=== PATIENT | male | born 1945 | race Caucasian/White ===

== ENCOUNTER 2016-12-29 06:01 | Emergency (ER) | payer MEDICARE, OTHER ==
[~2016-12-29] VITALS: Ht 175.3 cm; Wt 79.7 kg
[~2016-12-29 06:01] MED LIST: ASPI-621 PO; ATOR10TA PO; METH750T2 PO; METO25TA35 PO; NITR0.4T SL; OXYC1TAB7 PO; PRAS10TA4 PO; SULF1TAB24 PO; VALS80TA3 PO
[2016-12-29 06:03] VITALS: BP 163/88
[2016-12-29] MEDS ORDERED: PHENYLEPHRINE NASAL 1%, 15ML SPRAY ONE (06:22)
[2016-12-29] MEDS ORDERED: SILVER NITRATE STICK TP ONE (06:50)
== END 2016-12-29 07:41 | disposition home or self-care (01) ==
LOC: ED 07:37
DX: R04.0 Epistaxis (principal); I10 Essential (primary) hypertension; I25.2 Old myocardial infarction
CPT/HCPCS: 30901; 99284

== ENCOUNTER → 2017-11-24 | Outpatient (CLI) | payer MEDICARE, OTHER | END | disposition home or self-care (01) | LOC: CFH 08:35 | PROVIDERS: ATTEND Physician Assistant Surgical | DX: M48.07 Spinal stenosis, lumbosacral region (principal); M51.26 Other intervertebral disc displacement, lumbar region | CPT/HCPCS: 72120; 72148 ==

== ENCOUNTER → 2018-01-06 | Outpatient (CLI) | payer MEDICARE, OTHER ==
[~2018-01-06] MED LIST changes: +ASPI-496 PO; +ATOR10TA9 PO; +CHOL10003 PO; +KRIL1CAP PO; +MAGN400T7 PO; +MULT-717 PO; +TURM500C4 PO; +areds 2 PO
[2018-01-06 09:42] LABS: MICROSCOPIC NOT IND
[2018-01-06 09:47] LABS: BASOPHILS # (AUTO) 0.04 x10^3/uL (0-0.1); BASOPHILS % (AUTO) 1 % (0-1); EOSINOPHILS % (AUTO) 2 % (1-7); LYMPHOCYTES # (AUTO) 1.87 x10^3/uL (1-3.4); LYMPHOCYTES % (AUTO) 39 % (22-44); MD NO; MEAN CORPUSCULAR HGB CONC 34.4 g/dL (33.2-36.2); MEAN CORPUSCULAR VOLUME 92.9 fL (81-97); MONOCYTES # (AUTO) 0.53 x10^3/uL (0.2-0.8); MONOCYTES % (AUTO) 11 % (2-9); NEUTROPHILS % (AUTO) 48 % (42-75); PLATELET COUNT 166 x10^3/uL (130-400); RED BLOOD COUNT 4.51 x10^6/uL (4.38-5.82); RED CELL DISTRIBUTION WIDTH 13.6 % (9.4-14.8)
[2018-01-06 09:53] LABS: ALANINE AMINOTRANSFERASE 32 U/L (12-78); ALBUMIN 3.6 g/dL (3.4-5.0); ANION GAP 5 mmol/L (5-15); CALCIUM 8.2 mg/dL (8.5-10.1); CHLORIDE 108 mmol/L (98-107); CREATININE 0.96 mg/dL (0.7-1.3)
[2018-01-06 09:55] LABS: ALKALINE PHOSPHATASE 96 U/L (45-117); BILIRUBIN,TOTAL 0.8 mg/dL (0.2-1.0)
[2018-01-06 09:59] LABS: INTERNATIONAL NORMALIZED RATIO 1.03 (0.93-1.1); PROTHROMBIN TIME 10.7 Seconds (9.6-11.5)
[2018-01-06 10:06] LABS: CULTURE INDICATED? NO
== END | disposition home or self-care (01) ==
LOC: STAR 08:35
PROVIDERS: ATTEND Neurological Surgery
DX: Z01.818 Encounter for other preprocedural examination (principal); M51.36 Other intervertebral disc degeneration, lumbar region; I10 Essential (primary) hypertension
CPT/HCPCS: 36415; 71046; 80053; 81003; 85025; 85610; 85730; 93005

== ENCOUNTER 2018-01-14 07:26 | Observation (INO) | payer MEDICARE, OTHER ==
[~2018-01-14] VITALS: Ht 172.7 cm; Wt 83.9 kg
[~2018-01-14 07:26] MED LIST changes: +BACITRACIN 50,000 UNIT ONE; +BUPIVACAINE 0.25% ONE; +BUPIVACAINE/PF-EPI 0.5% 1:200K ONE; +THROMBIN 5,000 UNIT VIAL TP ONE
[2018-01-14 07:58] VITALS: BP 145/86
[2018-01-14] MEDS ORDERED: LACTATED RINGERS 1,000 ML IV SCH (08:10)
[2018-01-14] MEDS ORDERED: LIDOCAINE-MPF 2%, 2ML ONE (08:13)
[2018-01-14] MEDS ORDERED: LIDOCAINE-MPF 1%, 2ML INFIL ONE (08:30)
[2018-01-14] MEDS ORDERED: BUPIVACAINE 0.25% ONE (08:34)
[2018-01-14] MEDS ORDERED: OXYcodone 5 MG/5 ML ORAL.SOL UDC PO PRN (09:30)
[2018-01-14] MEDS ORDERED: MIDAZOLAM 1 MG/ML, 2ML IV PRN (09:30)
[2018-01-14] MEDS ORDERED: HYDROmorphone 2 MG/ML, 1ML IV PRN (09:30)
[2018-01-14] MEDS ORDERED: LABETALOL 5MG/ML, 20ML IV PRN (09:30)
[2018-01-14] MEDS ORDERED: FENTANYL PF 100 MCG/2ML IV PRN (09:30)
[2018-01-14] MEDS ORDERED: MEPERIDINE/PF 25MG/0.5ML IVPush PRN (09:30)
[2018-01-14] MEDS ORDERED: ONDANSETRON 2MG/ML, 2ML IVPush PRN ×2 (09:30→11:30)
[2018-01-14] MEDS ORDERED: MIDAZOLAM 1 MG/ML, 2ML ONE ×2 (09:38)
[2018-01-14] MEDS ORDERED: FENTANYL PF 100 MCG/2ML ONE ×2 (09:38→10:59)
[2018-01-14] MEDS ORDERED: CEFAZOLIN 1,000 MG ONE ×2 (09:41)
[2018-01-14] MEDS ORDERED: LIDOCAINE GEL 2%, 5ML ONE (09:41)
[2018-01-14] MEDS ORDERED: WATER-INJECTION,STERILE 10 ML IV ONE (09:55)
[2018-01-14] MEDS ORDERED: EPHEDRINE 50 MG/ML, 1ML ONE (09:55)
[2018-01-14] MEDS ORDERED: NEOSTIGMINE 1 MG/ML, 10ML ONE (10:15)
[2018-01-14] MEDS ORDERED: BUPIVACAINE/PF 0.25% EPIDPUSH ONE (11:01)
[2018-01-14] MEDS ORDERED: FENTANYL PF 100 MCG/2ML EPIDPUSH ONE (11:01)
[2018-01-14] MEDS ORDERED: LABETALOL 5MG/ML, 20ML IVPush PRN (11:30)
[2018-01-14] MEDS ORDERED: METHOCARBAMOL 750 MG TABLET PO PRN (11:30)
[2018-01-14] MEDS ORDERED: PROMETHAZINE 25 MG/ML, 1ML IM PRN (11:30)
[2018-01-14] MEDS ORDERED: PHARMACY MAY ADJ FOR RENAL FX MC PRN (11:30)
[2018-01-14] MEDS ORDERED: SENNA/DOCUSATE TABLET PO PRN (11:30)
[2018-01-14] MEDS ORDERED: BISACODYL 10 MG SUPP PR PRN (11:30)
[2018-01-14] MEDS ORDERED: morphine SULFATE 10 MG/ML, 1ML IVPush PRN (11:30)
[2018-01-14] MEDS ORDERED: HYDROcodone/APAP 5/325 TABLET PO PRN (11:30)
[2018-01-14] MEDS ORDERED: OXYcodone/APAP 5/325MG TABLET PO PRN (11:30)
[2018-01-14] MEDS ORDERED: CYCLOBENZAPRINE 10 MG TABLET PO PRN (11:30)
[2018-01-14] MEDS ORDERED: DIPHENHYDRAMINE 50 MG/ML, 1ML IVPush PRN (11:30)
[2018-01-14] MEDS ORDERED: ACETAMINOPHEN 650 MG/20.3 ML UDC ONE (12:02)
[2018-01-14] MEDS ORDERED: OXYcodone 5 MG/5 ML ORAL.SOL UDC ONE (12:03)
[2018-01-14] MEDS ORDERED: D5%-0.9% NACL+KCL 20MEQ 1,000 ML IV SCH (13:00)
[2018-01-14 15:17] VITALS: BP 110/75
[2018-01-14] MEDS ORDERED: DEXAMETHASONE 4 MG/ML, 1ML ONE (15:51)
[2018-01-14] MEDS ORDERED: PROPOFOL 10 MG/ML, 50ML ONE (15:51)
[2018-01-14] MEDS ORDERED: PROPOFOL 10 MG/ML, 20ML ONE (15:51)
[2018-01-14] MEDS ORDERED: ROCURONIUM 10 MG/ML,10ML ONE (15:51)
[2018-01-14] MEDS ORDERED: ONDANSETRON 2MG/ML, 2ML ONE (15:51)
[2018-01-14] MEDS: CEFAZOLIN PMX 1GM/50ML 50 ML IVPB SCH (18:16)
[2018-01-14 20:00] VITALS: BP 130/77
[2018-01-14] MEDS ORDERED: ATORVASTATIN 10 MG TABLET PO SCH (21:00)
[2018-01-14] MEDS: METOPROLOL TARTRATE 25 MG TABLET PO SCH (21:39)
[2018-01-14] MEDS: SODIUM CHLORIDE FLUSH 10ML SYR IVF SCH (21:39)
[2018-01-14 23:44] VITALS: BP 136/80
[2018-01-15] MEDS: HYDROcodone/APAP 10/325 MG TABLET PO PRN ×2 (00:14→06:50)
[2018-01-15] MEDS: CEFAZOLIN PMX 1GM/50ML 50 ML IVPB SCH (02:09)
[2018-01-15 04:00] VITALS: BP 109/62
[2018-01-15 07:55] VITALS: BP 130/76
[2018-01-15] MEDS: SODIUM CHLORIDE FLUSH 10ML SYR IVF SCH (08:36)
[2018-01-15] MEDS: METOPROLOL TARTRATE 25 MG TABLET PO SCH (08:37)
[2018-01-15] MEDS ORDERED: VALSARTAN 80 MG TABLET PO SCH (09:00)
[2018-01-15] MEDS ORDERED: METH750T87 PO (09:28)
[2018-01-15] MEDS ORDERED: HYDR-3240 PO (09:29)
== END 2018-01-15 09:54 | disposition home or self-care (01) ==
LOC: OUT 07:26 → ORIP 11:26 → 4NOR 12:40 → DCLOUNGE 01-15 09:45
PROVIDERS: ADMIT Neurological Surgery; ATTEND Neurological Surgery
DX: M48.062 Spinal stenosis, lumbar region with neurogenic claudication (principal); G89.29 Other chronic pain; I25.10 Atherosclerotic heart disease of native coronary artery without angina pectoris; I10 Essential (primary) hypertension; E78.2 Mixed hyperlipidemia; R42 Dizziness and giddiness
CPT/HCPCS: 63047; 96365; 96375; 97161; 97165; G0378; G8978; G8979; G8980; J0690; J1100; J2250; J2405; J2704; J2710; J3010; J3480; J3490; J7120

== ENCOUNTER 2018-01-20 14:14 | Inpatient (IN) | payer MEDICARE, OTHER ==
[~2018-01-20] VITALS: Ht 172.7 cm; Wt 83.3 kg
[~2018-01-20 14:14] MED LIST changes: -BACITRACIN 50,000 UNIT ONE; -BUPIVACAINE 0.25% ONE; -BUPIVACAINE/PF-EPI 0.5% 1:200K ONE; +HYDR-3240 PO; +METH750T87 PO; -THROMBIN 5,000 UNIT VIAL TP ONE
[2018-01-20] MEDS ORDERED: SODIUM CHLORIDE FLUSH 10ML SYR IVF ONE ×2 (14:30→15:00)
[2018-01-20 14:55] LABS: BASOPHILS # (AUTO) 0.07 x10^3/uL (0-0.1); BASOPHILS % (AUTO) 1 % (0-1); EOSINOPHILS % (AUTO) 0 % (1-7); LYMPHOCYTES # (AUTO) 0.34 x10^3/uL (1-3.4); LYMPHOCYTES % (AUTO) 2 % (22-44); MD NO; MEAN CORPUSCULAR HEMOGLOBIN 31.8 pg (27.5-34.5); MEAN CORPUSCULAR HGB CONC 34.5 g/dL (33.2-36.2); MEAN CORPUSCULAR VOLUME 92.1 fL (81-97); MONOCYTES # (AUTO) 0.63 x10^3/uL (0.2-0.8); MONOCYTES % (AUTO) 4 % (2-9); NEUTROPHILS # (AUTO) 13.16 x10^3/uL (1.8-6.8); NEUTROPHILS % (AUTO) 93 % (42-75); PLATELET COUNT 192 x10^3/uL (130-400); RED BLOOD COUNT 4.29 x10^6/uL (4.38-5.82); RED CELL DISTRIBUTION WIDTH 13.5 % (9.4-14.8)
[2018-01-20 14:58] LABS: ALANINE AMINOTRANSFERASE 25 U/L (12-78); ALBUMIN 3.2 g/dL (3.4-5.0); ANION GAP 8 mmol/L (5-15); CALCIUM 8.5 mg/dL (8.5-10.1); CHLORIDE 98 mmol/L (98-107); CREATININE 1.04 mg/dL (0.7-1.3)
[2018-01-20 15:00] LABS: ALKALINE PHOSPHATASE 90 U/L (45-117); BILIRUBIN,TOTAL 1.6 mg/dL (0.2-1.0); TOTAL PROTEIN 7.5 g/dL (6.4-8.2)
[2018-01-20] MEDS ORDERED: MORPHINE SULFATE 4 MG/ML, 1ML ONE ×2 (15:15→17:19)
[2018-01-20] MEDS: MORPHINE SULFATE 4 MG/ML, 1ML IVPush PRN ×2 (15:34→17:52)
[2018-01-20] MEDS ORDERED: VANCOMYCIN 1,500 MG in SODIUM CHLORIDE 0.9% 250 ML IV ONE (17:30)
[2018-01-20] MEDS ORDERED: VANCOMYCIN PER PHARMACY MC ONE (17:30)
[2018-01-20] MEDS ORDERED: VANCOMYCIN PER PHARMACY MC PRN (18:30)
[2018-01-20 18:58] VITALS: BP 133/78
[2018-01-20] MEDS ORDERED: ONDANSETRON 2MG/ML, 2ML IVPush PRN (19:00)
[2018-01-20] MEDS ORDERED: PHARMACOKINETIC MONITORING MC PRN (19:00)
[2018-01-20] MEDS ORDERED: ACETAMINOPHEN 325 MG TABLET PO PRN (19:00)
[2018-01-20] MEDS ORDERED: POLYETHYLENE GLYCOL 17 GM PACKET PO PRN (19:00)
[2018-01-20] MEDS ORDERED: BISACODYL 10 MG SUPP PR PRN (19:00)
[2018-01-20] MEDS ORDERED: PHARMACOKINETIC CONSULTATION MC ONE (19:00)
[2018-01-20] MEDS: ATORVASTATIN 10 MG TABLET PO SCH (20:07)
[2018-01-20] MEDS: PIPERACILLIN/TAZO/PMX 3.375GM 50 ML IV SCH (20:07)
[2018-01-20] MEDS: METHOCARBAMOL 750 MG TABLET PO PRN (20:07)
[2018-01-20] MEDS: METOPROLOL TARTRATE 25 MG TABLET PO SCH (20:08)
[2018-01-20] MEDS: HYDROcodone/APAP 5/325 TABLET PO PRN (20:08)
[2018-01-20] MEDS: SODIUM CHLORIDE 0.9% 1,000 ML IV SCH (20:08)
[2018-01-20 20:15] LABS: MICROSCOPIC NOT IND
[2018-01-20 20:33] LABS: CULTURE INDICATED? NO
[2018-01-21 00:06] VITALS: BP 99/59
[2018-01-21] MEDS: HYDROcodone/APAP 5/325 TABLET PO PRN ×4 (00:06→20:33)
[2018-01-21] MEDS: METHOCARBAMOL 750 MG TABLET PO PRN ×2 (00:06→04:03)
[2018-01-21] MEDS: PIPERACILLIN/TAZO/PMX 3.375GM 50 ML IV SCH ×4 (02:16→20:33)
[2018-01-21] MEDS ORDERED: MORPHINE SULFATE 4 MG/ML, 1ML IVPush ONE (04:30)
[2018-01-21 06:17] LABS: BASOPHILS # (AUTO) 0.01 x10^3/uL (0-0.1); BASOPHILS % (AUTO) 0 % (0-1); EOSINOPHILS # (AUTO) 0.07 x10^3/uL (0-0.4); EOSINOPHILS % (AUTO) 1 % (1-7); LYMPHOCYTES # (AUTO) 0.61 x10^3/uL (1-3.4); LYMPHOCYTES % (AUTO) 5 % (22-44); MD NO; MEAN CORPUSCULAR HEMOGLOBIN 32.4 pg (27.5-34.5); MEAN CORPUSCULAR HGB CONC 34.4 g/dL (33.2-36.2); MEAN CORPUSCULAR VOLUME 94.1 fL (81-97); MEAN PLATELET VOLUME 8.4 fL (7.4-10.4); MONOCYTES # (AUTO) 0.73 x10^3/uL (0.2-0.8); MONOCYTES % (AUTO) 5 % (2-9); NEUTROPHILS # (AUTO) 12.02 x10^3/uL (1.8-6.8); NEUTROPHILS % (AUTO) 90 % (42-75); PLATELET COUNT 203 x10^3/uL (130-400); RED BLOOD COUNT 4.25 x10^6/uL (4.38-5.82); RED CELL DISTRIBUTION WIDTH 13.7 % (9.4-14.8)
[2018-01-21 06:24] LABS: CHLORIDE 101 mmol/L (98-107)
[2018-01-21] MEDS: SODIUM CHLORIDE 0.9% 1,000 ML IV SCH ×3 (06:25→22:36)
[2018-01-21 06:31] LABS: ALANINE AMINOTRANSFERASE 22 U/L (12-78); ALBUMIN 3.1 g/dL (3.4-5.0); ALKALINE PHOSPHATASE 88 U/L (45-117); ANION GAP 9 mmol/L (5-15); BILIRUBIN,TOTAL 1.6 mg/dL (0.2-1.0); CALCIUM 8.9 mg/dL (8.5-10.1); CREATININE 1.01 mg/dL (0.7-1.3); TOTAL PROTEIN 7.5 g/dL (6.4-8.2)
[2018-01-21 06:50] VITALS: BP 119/72
[2018-01-21] MEDS: METOPROLOL TARTRATE 25 MG TABLET PO SCH ×2 (08:30→20:33)
[2018-01-21] MEDS: CHOLECALCIFEROL 1,000 UNIT TABLET PO SCH (09:00)
[2018-01-21] MEDS: VALSARTAN 80 MG TABLET PO SCH (09:00)
[2018-01-21] MEDS ORDERED: TURMERIC ROOT EXTRACT PO SCH (09:00)
[2018-01-21] MEDS ORDERED: [UNRECOGNIZED DRUG - OTHER] PO SCH (09:00)
[2018-01-21] MEDS: SENNA/DOCUSATE TABLET PO SCH (09:00)
[2018-01-21] MEDS: FAMOTIDINE 20 MG TABLET PO SCH ×2 (09:00→10:27)
[2018-01-21] MEDS: MULTIVITAMINS/MINERALS TABLET PO SCH (09:00)
[2018-01-21] MEDS: MAGNESIUM OXIDE 400 MG TABLET PO SCH (09:00)
[2018-01-21] MEDS ORDERED: TURMERIC PO SCH (09:00)
[2018-01-21] MEDS: METHOCARBAMOL 750 MG in DEXTROSE 5% 100 ML IV SCH ×3 (10:26→21:16)
[2018-01-21] MEDS: TAMSULOSIN 0.4 MG CAP.ER.24H PO SCH (10:27)
[2018-01-21] MEDS: DEXAMETHASONE 4 MG/ML, 1ML IV SCH ×3 (10:28→20:34)
[2018-01-21] MEDS: KETOROLAC 30 MG/1 ML IVPush SCH ×3 (10:28→20:33)
[2018-01-21] MEDS: VANCOMYCIN 1,500 MG in SODIUM CHLORIDE 0.9% 250 ML IV SCH (11:36)
[2018-01-21 14:45] VITALS: BP 109/63
[2018-01-21] MEDS: ATORVASTATIN 10 MG TABLET PO SCH (20:33)
[2018-01-21 20:55] VITALS: BP 122/63
[2018-01-22 01:18] VITALS: BP 161/88
[2018-01-22] MEDS: PIPERACILLIN/TAZO/PMX 3.375GM 50 ML IV SCH ×2 (02:38→08:35)
[2018-01-22] MEDS: KETOROLAC 30 MG/1 ML IVPush SCH (03:11)
[2018-01-22] MEDS: DEXAMETHASONE 4 MG/ML, 1ML IV SCH ×2 (03:11→09:00)
[2018-01-22] MEDS: METHOCARBAMOL 750 MG in DEXTROSE 5% 100 ML IV SCH ×2 (03:11→11:07)
[2018-01-22] MEDS: VANCOMYCIN 1,500 MG in SODIUM CHLORIDE 0.9% 250 ML IV SCH (05:05)
[2018-01-22 05:28] LABS: MEAN CORPUSCULAR HEMOGLOBIN 32.3 pg (27.5-34.5); MEAN CORPUSCULAR HGB CONC 34.7 g/dL (33.2-36.2); MEAN CORPUSCULAR VOLUME 93.3 fL (81-97); MEAN PLATELET VOLUME 7.9 fL (7.4-10.4); PLATELET COUNT 208 x10^3/uL (130-400); RED BLOOD COUNT 3.56 x10^6/uL (4.38-5.82); RED CELL DISTRIBUTION WIDTH 13.9 % (9.4-14.8)
[2018-01-22 05:40] LABS: ALANINE AMINOTRANSFERASE 18 U/L (12-78); ALBUMIN 2.3 g/dL (3.4-5.0); ANION GAP 8 mmol/L (5-15); CHLORIDE 107 mmol/L (98-107); CREATININE 0.92 mg/dL (0.7-1.3)
[2018-01-22 05:43] LABS: ALKALINE PHOSPHATASE 72 U/L (45-117); BILIRUBIN,TOTAL 0.5 mg/dL (0.2-1.0); TOTAL PROTEIN 6.2 g/dL (6.4-8.2)
[2018-01-22 05:51] LABS: BASOPHILS % (AUTO) 0 % (0-1); EOSINOPHILS % (AUTO) 0 % (1-7); LYMPHOCYTES % (AUTO) 5 % (22-44); MD SCAN; MONOCYTES # (AUTO) 0.36 x10^3/uL (0.2-0.8); MONOCYTES % (AUTO) 4 % (2-9); NEUTROPHILS # (AUTO) 9.63 x10^3/uL (1.8-6.8); NEUTROPHILS % (AUTO) 92 % (42-75)
[2018-01-22] MEDS: HYDROcodone/APAP 5/325 TABLET PO PRN ×2 (06:32→12:23)
[2018-01-22 07:05] VITALS: BP 144/90
[2018-01-22] MEDS: SODIUM CHLORIDE 0.9% 1,000 ML IV SCH (08:35)
[2018-01-22] MEDS ORDERED: KETOROLAC 30 MG/1 ML IV PRN (09:00)
[2018-01-22] MEDS: SENNA/DOCUSATE TABLET PO SCH (09:51)
[2018-01-22] MEDS: METOPROLOL TARTRATE 25 MG TABLET PO SCH (09:52)
[2018-01-22] MEDS: VALSARTAN 80 MG TABLET PO SCH (09:52)
[2018-01-22] MEDS: FAMOTIDINE 20 MG TABLET PO SCH (09:52)
[2018-01-22] MEDS: CHOLECALCIFEROL 1,000 UNIT TABLET PO SCH (09:52)
[2018-01-22] MEDS: TAMSULOSIN 0.4 MG CAP.ER.24H PO SCH (09:52)
[2018-01-22] MEDS: MULTIVITAMINS/MINERALS TABLET PO SCH (09:52)
[2018-01-22] MEDS: MAGNESIUM OXIDE 400 MG TABLET PO SCH (09:52)
[2018-01-22] MEDS ORDERED: medrol dose pack (11:14)
[2018-01-22] MEDS ORDERED: FAMO20TA7 PO (11:14)
[2018-01-22] MEDS ORDERED: POLY17PO5 PO (11:14)
[2018-01-23] MEDS ORDERED: MAGN100T6 PO (12:08)
== END 2018-01-22 12:41 | disposition home or self-care (01) | DRG 947 ==
LOC: ED 17:34 → EDIP 17:35 → ED 17:57 → 3NE 18:13 → DCLOUNGE 01-22 12:29
PROVIDERS: ADMIT Hospitalist; ATTEND Internal Medicine
DX: G89.18 Other acute postprocedural pain (principal); E43 Unspecified severe protein-calorie malnutrition; G03.9 Meningitis, unspecified; E87.1 Hypo-osmolality and hyponatremia; R17 Unspecified jaundice; M54.5 Low back pain; Z68.27 Body mass index [BMI] 27.0-27.9, adult; I10 Essential (primary) hypertension; I25.10 Atherosclerotic heart disease of native coronary artery without angina pectoris; I25.2 Old myocardial infarction; Z66 Do not resuscitate; Z95.5 Presence of coronary angioplasty implant and graft
CPT/HCPCS: 36415; 71045; 72120; 72158; 80053; 81003; 83605; 83735; 84100; 85025; 87040; 96374; 96376; 99285; J1100; J1885; J2543; J3370; J2800; J7030; J7050

== ENCOUNTER 2018-01-23 11:45 | Inpatient (IN) | payer MEDICARE, OTHER ==
[~2018-01-23] VITALS: Ht 172.7 cm; Wt 82.1 kg
[~2018-01-23 11:45] MED LIST changes: +FAMO20TA7 PO; +POLY17PO5 PO; +medrol dose pack
[2018-01-23] MEDS ORDERED: MAGN100T6 PO (12:08)
[2018-01-23] MEDS ORDERED: ONDANSETRON 2MG/ML, 2ML IVPush ONE (12:30)
[2018-01-23] MEDS ORDERED: SODIUM CHLORIDE FLUSH 10ML SYR IVF ONE (12:30)
[2018-01-23] MEDS ORDERED: MORPHINE SULFATE 4 MG/ML, 1ML IVPush ONE (12:30)
[2018-01-23] MEDS ORDERED: SODIUM CHLORIDE 0.9% 1,000ML IVBOLUS ONE (12:30)
[2018-01-23] MEDS ORDERED: ONDANSETRON 2MG/ML, 2ML ONE (12:47)
[2018-01-23] MEDS ORDERED: MORPHINE SULFATE 4 MG/ML, 1ML ONE (12:47)
[2018-01-23 13:07] LABS: ALANINE AMINOTRANSFERASE 24 U/L (12-78); ALBUMIN 2.8 g/dL (3.4-5.0); ANION GAP 9 mmol/L (5-15); CALCIUM 8.7 mg/dL (8.5-10.1); CHLORIDE 107 mmol/L (98-107); CREATININE 1.05 mg/dL (0.7-1.3)
[2018-01-23 13:24] LABS: ALKALINE PHOSPHATASE 81 U/L (45-117); BILIRUBIN,TOTAL 0.5 mg/dL (0.2-1.0); TOTAL PROTEIN 7.2 g/dL (6.4-8.2)
[2018-01-23] MEDS ORDERED: GADOBUTROL 7.5 MMOL/7.5 ML PFS ONE (14:00)
[2018-01-23 14:11] LABS: BASOPHILS # (AUTO) 0.01 x10^3/uL (0-0.1); BASOPHILS % (AUTO) 0 % (0-1); EOSINOPHILS % (AUTO) 0 % (1-7); LYMPHOCYTES # (AUTO) 0.76 x10^3/uL (1-3.4); LYMPHOCYTES % (AUTO) 7 % (22-44); MD NO; MEAN CORPUSCULAR HEMOGLOBIN 32.3 pg (27.5-34.5); MEAN CORPUSCULAR HGB CONC 35.2 g/dL (33.2-36.2); MEAN CORPUSCULAR VOLUME 91.7 fL (81-97); MEAN PLATELET VOLUME 7.5 fL (7.4-10.4); MONOCYTES # (AUTO) 0.66 x10^3/uL (0.2-0.8); MONOCYTES % (AUTO) 6 % (2-9); NEUTROPHILS # (AUTO) 9.54 x10^3/uL (1.8-6.8); NEUTROPHILS % (AUTO) 87 % (42-75); PLATELET COUNT 308 x10^3/uL (130-400); RED CELL DISTRIBUTION WIDTH 13.7 % (9.4-14.8)
[2018-01-23] MEDS ORDERED: POLYETHYLENE GLYCOL 17 GM PACKET PO PRN (16:30)
[2018-01-23 16:43] VITALS: BP 150/85
[2018-01-23 17:01] LABS: FREE T4 (FREE THYROXINE) 1.3 ng/dL (0.76-1.46); THYROID STIMULATING HORMONE 0.685 mIU/L (0.358-3.740)
[2018-01-23 17:05] LABS: HCT (SEDRATE) 36.7 % (39.2-51.8)
[2018-01-23] MEDS: POTASSIUM CHLORIDE 20 MEQ TAB.ER.PRT PO SCH ×2 (17:37→20:52)
[2018-01-23] MEDS: ENOXAPARIN 40 MG/0.4 ML SQ SCH (17:37)
[2018-01-23] MEDS: METHOCARBAMOL 750 MG in DEXTROSE 5% 100 ML IV SCH ×2 (17:37→23:39)
[2018-01-23] MEDS ORDERED: ONDANSETRON 2MG/ML, 2ML IVPush PRN (19:00)
[2018-01-23 19:59] VITALS: BP 148/86
[2018-01-23] MEDS: FAMOTIDINE 20 MG TABLET PO SCH (20:52)
[2018-01-23] MEDS: METOPROLOL TARTRATE 25 MG TABLET PO SCH (20:52)
[2018-01-23] MEDS: ATORVASTATIN 10 MG TABLET PO SCH (20:52)
[2018-01-23] MEDS ORDERED: TEMAZEPAM 15 MG CAPSULE PO PRN (21:00)
[2018-01-23] MEDS: SODIUM CHLORIDE 0.9% 1,000 ML IV SCH (23:40)
[2018-01-24 01:21] VITALS: BP 152/78
[2018-01-24] MEDS: ACETAMINOPHEN 325 MG TABLET PO PRN ×2 (03:48→10:10)
[2018-01-24] MEDS: METHOCARBAMOL 750 MG in DEXTROSE 5% 100 ML IV SCH ×4 (05:05→22:45)
[2018-01-24 05:32] LABS: BASOPHILS % (AUTO) 0 % (0-1); EOSINOPHILS # (AUTO) 0.08 x10^3/uL (0-0.4); EOSINOPHILS % (AUTO) 1 % (1-7); LYMPHOCYTES # (AUTO) 1.37 x10^3/uL (1-3.4); LYMPHOCYTES % (AUTO) 16 % (22-44); MD NO; MEAN CORPUSCULAR HEMOGLOBIN 31.6 pg (27.5-34.5); MEAN CORPUSCULAR HGB CONC 34.5 g/dL (33.2-36.2); MEAN CORPUSCULAR VOLUME 91.8 fL (81-97); MEAN PLATELET VOLUME 7.4 fL (7.4-10.4); MONOCYTES # (AUTO) 0.86 x10^3/uL (0.2-0.8); MONOCYTES % (AUTO) 10 % (2-9); NEUTROPHILS # (AUTO) 6.38 x10^3/uL (1.8-6.8); NEUTROPHILS % (AUTO) 73 % (42-75); PLATELET COUNT 287 x10^3/uL (130-400); RED BLOOD COUNT 3.82 x10^6/uL (4.38-5.82); RED CELL DISTRIBUTION WIDTH 14.1 % (9.4-14.8)
[2018-01-24 05:34] LABS: ALBUMIN 2.6 g/dL (3.4-5.0); ANION GAP 9 mmol/L (5-15); CHLORIDE 108 mmol/L (98-107)
[2018-01-24 05:40] LABS: ALANINE AMINOTRANSFERASE 27 U/L (12-78); ALKALINE PHOSPHATASE 80 U/L (45-117); BILIRUBIN,TOTAL 0.8 mg/dL (0.2-1.0); CALCIUM 7.9 mg/dL (8.5-10.1); TOTAL PROTEIN 6.7 g/dL (6.4-8.2)
[2018-01-24 07:42] VITALS: BP 135/82
[2018-01-24] MEDS: FAMOTIDINE 20 MG TABLET PO SCH ×2 (08:25→21:16)
[2018-01-24] MEDS: CHOLECALCIFEROL 1,000 UNIT TABLET PO SCH (08:25)
[2018-01-24] MEDS: METOPROLOL TARTRATE 25 MG TABLET PO SCH ×2 (08:25→21:16)
[2018-01-24] MEDS: SODIUM CHLORIDE 0.9% 1,000 ML IV SCH ×3 (08:26→22:45)
[2018-01-24] MEDS ORDERED: ONDANSETRON 2MG/ML, 2ML IV PRN (11:30)
[2018-01-24] MEDS ORDERED: ACETAMINOPHEN 325 MG TABLET PO PRN (11:30)
[2018-01-24] MEDS ORDERED: MEPERIDINE/PF 25MG/0.5ML IVPush PRN (11:30)
[2018-01-24] MEDS ORDERED: hydrALAzine 20 MG/ML, 1ML IV PRN (11:30)
[2018-01-24] MEDS ORDERED: DIAZEPAM 5 MG/ML, 2ML IVPush PRN (11:30)
[2018-01-24] MEDS ORDERED: PROMETHAZINE 12.5 MG SUPP PR PRN (11:30)
[2018-01-24] MEDS ORDERED: FENTANYL PF 250 MCG/5ML ONE (12:23)
[2018-01-24] MEDS ORDERED: BUPIVACAINE/PF 0.5% ONE (12:43)
[2018-01-24] MEDS ORDERED: THROMBIN 5,000 UNIT VIAL TP ONE (12:44)
[2018-01-24] MEDS ORDERED: VANCOMYCIN 1,000 MG ONE (12:44)
[2018-01-24] MEDS ORDERED: BACITRACIN 50,000 UNIT ONE (12:44)
[2018-01-24] MEDS ORDERED: EPINEPHRINE 1 MG/ML, 1ML ONE (12:44)
[2018-01-24] MEDS ORDERED: CEFAZOLIN 1,000 MG ONE (13:25)
[2018-01-24] MEDS ORDERED: PROPOFOL 10 MG/ML, 20ML ONE (14:46)
[2018-01-24] MEDS ORDERED: ROCURONIUM 10MG/ML,5ML ONE (14:46)
[2018-01-24] MEDS ORDERED: SUCCINYLCHOLINE 20 MG/ML, 10ML ONE (14:46)
[2018-01-24] MEDS ORDERED: ONDANSETRON 2MG/ML, 2ML ONE (14:46)
[2018-01-24] MEDS ORDERED: DEXAMETHASONE 4 MG/ML, 1ML ONE (14:46)
[2018-01-24] MEDS: FENTANYL PF 100 MCG/2ML IV PRN ×2 (15:15→15:25)
[2018-01-24] MEDS ORDERED: FENTANYL PF 100 MCG/2ML ONE (15:16)
[2018-01-24] MEDS ORDERED: ACETAMINOPHEN 650 MG/20.3 ML UDC ONE (15:19)
[2018-01-24] MEDS ORDERED: OXYcodone 5 MG/5 ML ORAL.SOL UDC ONE (15:20)
[2018-01-24] MEDS ORDERED: HYDROmorphone 2 MG/ML, 1ML ONE (15:20)
[2018-01-24] MEDS ORDERED: PHARMACY MAY ADJ FOR RENAL FX MC PRN (15:30)
[2018-01-24] MEDS: OXYcodone 5 MG/5 ML ORAL.SOL UDC PO PRN ×2 (15:30→18:22)
[2018-01-24] MEDS: HYDROmorphone 1 MG/ML, 1ML IV PRN ×4 (15:50→16:35)
[2018-01-24] MEDS ORDERED: CEFAZOLIN PMX 1GM/50ML 50 ML IVPB SCH (16:00)
[2018-01-24] MEDS: LABETALOL 5MG/ML, 20ML IV PRN ×2 (16:10→16:20)
[2018-01-24] MEDS ORDERED: LABETALOL 5MG/ML, 20ML ONE (16:27)
[2018-01-24] MEDS: ENOXAPARIN 40 MG/0.4 ML SQ SCH (17:00)
[2018-01-24 20:04] VITALS: BP 144/90
[2018-01-24] MEDS: CEFAZOLIN PMX 1GM/50ML 50 ML IVPB SCH (21:13)
[2018-01-24] MEDS: ATORVASTATIN 10 MG TABLET PO SCH (21:15)
[2018-01-25 00:56] VITALS: BP 138/82
[2018-01-25] MEDS: METHOCARBAMOL 750 MG in DEXTROSE 5% 100 ML IV SCH ×4 (04:48→22:54)
[2018-01-25 05:31] LABS: BASOPHILS # (AUTO) 0.02 x10^3/uL (0-0.1); BASOPHILS % (AUTO) 0 % (0-1); EOSINOPHILS # (AUTO) 0.03 x10^3/uL (0-0.4); EOSINOPHILS % (AUTO) 0 % (1-7); LYMPHOCYTES # (AUTO) 1.18 x10^3/uL (1-3.4); LYMPHOCYTES % (AUTO) 15 % (22-44); MD NO; MEAN CORPUSCULAR HEMOGLOBIN 31.8 pg (27.5-34.5); MEAN CORPUSCULAR HGB CONC 34.5 g/dL (33.2-36.2); MEAN CORPUSCULAR VOLUME 92.2 fL (81-97); MEAN PLATELET VOLUME 7.3 fL (7.4-10.4); MONOCYTES # (AUTO) 0.73 x10^3/uL (0.2-0.8); MONOCYTES % (AUTO) 9 % (2-9); NEUTROPHILS # (AUTO) 6.01 x10^3/uL (1.8-6.8); NEUTROPHILS % (AUTO) 76 % (42-75); PLATELET COUNT 252 x10^3/uL (130-400); RED BLOOD COUNT 3.39 x10^6/uL (4.38-5.82); RED CELL DISTRIBUTION WIDTH 13.9 % (9.4-14.8)
[2018-01-25] MEDS: CEFAZOLIN PMX 1GM/50ML 50 ML IVPB SCH (05:38)
[2018-01-25 05:42] LABS: ALBUMIN 2.2 g/dL (3.4-5.0); ANION GAP 6 mmol/L (5-15); CALCIUM 7.9 mg/dL (8.5-10.1); CHLORIDE 104 mmol/L (98-107)
[2018-01-25 05:47] LABS: ALANINE AMINOTRANSFERASE 20 U/L (12-78); ALKALINE PHOSPHATASE 69 U/L (45-117); BILIRUBIN,TOTAL 0.6 mg/dL (0.2-1.0); CREATININE 0.63 mg/dL (0.7-1.3); TOTAL PROTEIN 5.8 g/dL (6.4-8.2)
[2018-01-25] MEDS: SODIUM CHLORIDE 0.9% 1,000 ML IV SCH ×2 (08:13→16:58)
[2018-01-25] MEDS: FAMOTIDINE 20 MG TABLET PO SCH ×2 (08:16→22:54)
[2018-01-25] MEDS: CHOLECALCIFEROL 1,000 UNIT TABLET PO SCH (08:16)
[2018-01-25] MEDS: METOPROLOL TARTRATE 25 MG TABLET PO SCH ×2 (08:16→22:54)
[2018-01-25 08:17] VITALS: BP 148/85
[2018-01-25 12:20] VITALS: BP 147/75
[2018-01-25] MEDS: ENOXAPARIN 40 MG/0.4 ML SQ SCH (15:17)
[2018-01-25] MEDS: HYDROcodone/APAP 5/325 TABLET PO PRN (18:00)
[2018-01-25 18:55] VITALS: BP 155/76
[2018-01-25] MEDS: ATORVASTATIN 10 MG TABLET PO SCH (22:54)
[2018-01-26 01:53] VITALS: BP 160/92
[2018-01-26] MEDS: SODIUM CHLORIDE 0.9% 1,000 ML IV SCH ×3 (02:01→20:54)
[2018-01-26 05:49] LABS: BASOPHILS # (AUTO) 0.01 x10^3/uL (0-0.1); BASOPHILS % (AUTO) 0 % (0-1); EOSINOPHILS # (AUTO) 0.09 x10^3/uL (0-0.4); EOSINOPHILS % (AUTO) 1 % (1-7); LYMPHOCYTES # (AUTO) 0.88 x10^3/uL (1-3.4); LYMPHOCYTES % (AUTO) 12 % (22-44); MD NO; MEAN CORPUSCULAR HEMOGLOBIN 31.5 pg (27.5-34.5); MEAN CORPUSCULAR HGB CONC 34.1 g/dL (33.2-36.2); MEAN CORPUSCULAR VOLUME 92.4 fL (81-97); MEAN PLATELET VOLUME 7.3 fL (7.4-10.4); MONOCYTES # (AUTO) 0.37 x10^3/uL (0.2-0.8); MONOCYTES % (AUTO) 5 % (2-9); NEUTROPHILS # (AUTO) 6.36 x10^3/uL (1.8-6.8); NEUTROPHILS % (AUTO) 83 % (42-75); PLATELET COUNT 297 x10^3/uL (130-400); RED BLOOD COUNT 3.96 x10^6/uL (4.38-5.82); RED CELL DISTRIBUTION WIDTH 13.6 % (9.4-14.8)
[2018-01-26 05:53] LABS: ALBUMIN 2.3 g/dL (3.4-5.0); ANION GAP 8 mmol/L (5-15); CALCIUM 8.3 mg/dL (8.5-10.1); CHLORIDE 101 mmol/L (98-107)
[2018-01-26 05:56] LABS: ALANINE AMINOTRANSFERASE 21 U/L (12-78); ALKALINE PHOSPHATASE 91 U/L (45-117); BILIRUBIN,TOTAL 0.9 mg/dL (0.2-1.0); CREATININE 0.58 mg/dL (0.7-1.3); TOTAL PROTEIN 6.4 g/dL (6.4-8.2)
[2018-01-26] MEDS: METHOCARBAMOL 750 MG in DEXTROSE 5% 100 ML IV SCH ×3 (06:17→21:04)
[2018-01-26 07:31] VITALS: BP 158/87
[2018-01-26] MEDS: FAMOTIDINE 20 MG TABLET PO SCH ×2 (08:50→20:54)
[2018-01-26] MEDS: CHOLECALCIFEROL 1,000 UNIT TABLET PO SCH (08:50)
[2018-01-26] MEDS: METOPROLOL TARTRATE 25 MG TABLET PO SCH ×2 (08:50→20:54)
[2018-01-26] MEDS ORDERED: NAFCILLIN IV SCH (09:00)
[2018-01-26] MEDS ORDERED: DEXTROSE 5% IV SCH (09:00)
[2018-01-26] MEDS ORDERED: TAMSULOSIN 0.4 MG CAP.ER.24H ONE (12:50)
[2018-01-26] MEDS: TAMSULOSIN 0.4 MG CAP.ER.24H PO SCH (12:58)
[2018-01-26 12:59] VITALS: BP 153/82
[2018-01-26] MEDS ORDERED: CEFUROXIME 1.5 GM in SODIUM CHLORIDE 0.9% 100 ML IV SCH (14:00)
[2018-01-26] MEDS: ENOXAPARIN 40 MG/0.4 ML SQ SCH (15:09)
[2018-01-26] MEDS: CEFUROXIME 1.5 GM in SODIUM CHLORIDE 0.9% 50 ML IV SCH ×2 (15:09→23:17)
[2018-01-26 18:58] VITALS: BP 153/84
[2018-01-26] MEDS: HYDROcodone/APAP 5/325 TABLET PO PRN (20:54)
[2018-01-26] MEDS: ATORVASTATIN 10 MG TABLET PO SCH (20:54)
[2018-01-27 00:59] VITALS: BP 160/88
[2018-01-27] MEDS: HYDROcodone/APAP 5/325 TABLET PO PRN ×4 (01:46→20:08)
[2018-01-27] MEDS: SODIUM CHLORIDE 0.9% 1,000 ML IV SCH (05:57)
[2018-01-27 07:24] VITALS: BP 131/73
[2018-01-27] MEDS: FAMOTIDINE 20 MG TABLET PO SCH ×2 (07:33→20:07)
[2018-01-27] MEDS: CHOLECALCIFEROL 1,000 UNIT TABLET PO SCH (07:33)
[2018-01-27] MEDS: CEFUROXIME 1.5 GM in SODIUM CHLORIDE 0.9% 50 ML IV SCH ×3 (07:33→23:35)
[2018-01-27] MEDS: TAMSULOSIN 0.4 MG CAP.ER.24H PO SCH (07:33)
[2018-01-27] MEDS: METOPROLOL TARTRATE 25 MG TABLET PO SCH ×2 (07:33→20:08)
[2018-01-27 14:48] VITALS: BP 137/85
[2018-01-27] MEDS: ENOXAPARIN 40 MG/0.4 ML SQ SCH (15:00)
[2018-01-27] MEDS: METHOCARBAMOL 750 MG TABLET PO PRN (15:28)
[2018-01-27 20:02] VITALS: BP 151/77
[2018-01-27] MEDS: ATORVASTATIN 10 MG TABLET PO SCH (20:07)
[2018-01-28] MEDS: HYDROcodone/APAP 5/325 TABLET PO PRN ×4 (00:12→21:32)
[2018-01-28] MEDS: METHOCARBAMOL 750 MG TABLET PO PRN ×2 (00:12→19:42)
[2018-01-28 00:13] VITALS: BP 148/79
[2018-01-28 05:31] LABS: BASOPHILS # (AUTO) 0.01 x10^3/uL (0-0.1); BASOPHILS % (AUTO) 0 % (0-1); EOSINOPHILS # (AUTO) 0.13 x10^3/uL (0-0.4); EOSINOPHILS % (AUTO) 2 % (1-7); LYMPHOCYTES % (AUTO) 13 % (22-44); MD NO; MEAN CORPUSCULAR HGB CONC 34.9 g/dL (33.2-36.2); MEAN CORPUSCULAR VOLUME 91.7 fL (81-97); MEAN PLATELET VOLUME 7.1 fL (7.4-10.4); MONOCYTES # (AUTO) 0.64 x10^3/uL (0.2-0.8); MONOCYTES % (AUTO) 9 % (2-9); NEUTROPHILS # (AUTO) 5.54 x10^3/uL (1.8-6.8); NEUTROPHILS % (AUTO) 77 % (42-75); PLATELET COUNT 247 x10^3/uL (130-400); RED BLOOD COUNT 3.62 x10^6/uL (4.38-5.82); RED CELL DISTRIBUTION WIDTH 13.8 % (9.4-14.8)
[2018-01-28 05:38] LABS: ALANINE AMINOTRANSFERASE 82 U/L (12-78); ANION GAP 8 mmol/L (5-15); CALCIUM 8.1 mg/dL (8.5-10.1); CHLORIDE 105 mmol/L (98-107); CREATININE 0.66 mg/dL (0.7-1.3)
[2018-01-28 05:41] LABS: ALKALINE PHOSPHATASE 240 U/L (45-117); BILIRUBIN,TOTAL 1.1 mg/dL (0.2-1.0); TOTAL PROTEIN 6.1 g/dL (6.4-8.2)
[2018-01-28] MEDS: TAMSULOSIN 0.4 MG CAP.ER.24H PO SCH (07:36)
[2018-01-28] MEDS: CEFUROXIME 1.5 GM in SODIUM CHLORIDE 0.9% 50 ML IV SCH (07:36)
[2018-01-28] MEDS: CHOLECALCIFEROL 1,000 UNIT TABLET PO SCH (07:36)
[2018-01-28] MEDS: FAMOTIDINE 20 MG TABLET PO SCH ×2 (07:36→19:42)
[2018-01-28] MEDS: METOPROLOL TARTRATE 25 MG TABLET PO SCH ×2 (07:37→19:42)
[2018-01-28 07:49] VITALS: BP 149/86
[2018-01-28 13:47] VITALS: BP_SYST 133; BP_SYST 144; BP_DIAS 72; BP_DIAS 95
[2018-01-28] MEDS: ERTAPENEM 1 GM in SODIUM CHLORIDE 0.9% 50 ML IV SCH (15:13)
[2018-01-28] MEDS: ENOXAPARIN 40 MG/0.4 ML SQ SCH (15:13)
[2018-01-28 19:29] VITALS: BP 151/80
[2018-01-28] MEDS: ATORVASTATIN 10 MG TABLET PO SCH (19:42)
[2018-01-29 00:57] VITALS: BP 140/80
[2018-01-29] MEDS: HYDROcodone/APAP 5/325 TABLET PO PRN ×2 (04:45→19:52)
[2018-01-29] MEDS: METHOCARBAMOL 750 MG TABLET PO PRN (04:45)
[2018-01-29 05:52] LABS: CHLORIDE 103 mmol/L (98-107)
[2018-01-29 06:01] LABS: ALANINE AMINOTRANSFERASE 153 U/L (12-78); ALKALINE PHOSPHATASE 309 U/L (45-117); ANION GAP 8 mmol/L (5-15); BILIRUBIN,TOTAL 1.9 mg/dL (0.2-1.0); CALCIUM 8.1 mg/dL (8.5-10.1); CREATININE 0.76 mg/dL (0.7-1.3)
[2018-01-29 08:00] VITALS: BP 138/76
[2018-01-29] MEDS: METOPROLOL TARTRATE 25 MG TABLET PO SCH ×2 (09:13→19:53)
[2018-01-29] MEDS: TAMSULOSIN 0.4 MG CAP.ER.24H PO SCH (09:13)
[2018-01-29] MEDS: FAMOTIDINE 20 MG TABLET PO SCH ×2 (09:13→19:52)
[2018-01-29] MEDS: CHOLECALCIFEROL 1,000 UNIT TABLET PO SCH (09:13)
[2018-01-29] MEDS ORDERED: LIDOCAINE-MPF 2%, 2ML ONE (11:38)
[2018-01-29 13:20] VITALS: BP 171/78
[2018-01-29] MEDS: ENALAPRILAT 1.25 MG/ML, 2ML IVPush PRN (13:57)
[2018-01-29] MEDS: ENOXAPARIN 40 MG/0.4 ML SQ SCH (15:51)
[2018-01-29] MEDS: ERTAPENEM 1 GM in SODIUM CHLORIDE 0.9% 50 ML IV SCH (15:51)
[2018-01-29] MEDS: ATORVASTATIN 10 MG TABLET PO SCH (19:53)
[2018-01-29 19:55] VITALS: BP 160/93
[2018-01-30 01:35] VITALS: BP 145/82
[2018-01-30 03:28] LABS: BASOPHILS # (AUTO) 0.01 x10^3/uL (0-0.1); BASOPHILS % (AUTO) 0 % (0-1); EOSINOPHILS # (AUTO) 0.05 x10^3/uL (0-0.4); EOSINOPHILS % (AUTO) 1 % (1-7); LYMPHOCYTES # (AUTO) 0.76 x10^3/uL (1-3.4); LYMPHOCYTES % (AUTO) 12 % (22-44); MD NO; MEAN CORPUSCULAR HGB CONC 34.8 g/dL (33.2-36.2); MEAN CORPUSCULAR VOLUME 91.9 fL (81-97); MEAN PLATELET VOLUME 7.4 fL (7.4-10.4); MONOCYTES # (AUTO) 0.77 x10^3/uL (0.2-0.8); MONOCYTES % (AUTO) 12 % (2-9); NEUTROPHILS # (AUTO) 4.57 x10^3/uL (1.8-6.8); NEUTROPHILS % (AUTO) 74 % (42-75); PLATELET COUNT 212 x10^3/uL (130-400); RED BLOOD COUNT 3.09 x10^6/uL (4.38-5.82); RED CELL DISTRIBUTION WIDTH 13.7 % (9.4-14.8)
[2018-01-30 03:29] LABS: ALANINE AMINOTRANSFERASE 216 U/L (12-78); ALBUMIN 1.8 g/dL (3.4-5.0); ANION GAP 6 mmol/L (5-15); CALCIUM 7.8 mg/dL (8.5-10.1); CHLORIDE 105 mmol/L (98-107); CREATININE 0.87 mg/dL (0.7-1.3)
[2018-01-30 03:37] LABS: ALKALINE PHOSPHATASE 354 U/L (45-117); BILIRUBIN,TOTAL 1.9 mg/dL (0.2-1.0); TOTAL PROTEIN 5.6 g/dL (6.4-8.2)
[2018-01-30 04:18] LABS: HCT (SEDRATE) 28.4 % (39.2-51.8)
[2018-01-30 06:49] VITALS: BP 173/84
[2018-01-30] MEDS: ENALAPRILAT 1.25 MG/ML, 2ML IVPush PRN (07:11)
[2018-01-30 07:25] VITALS: BP 169/81
[2018-01-30] MEDS: METOPROLOL TARTRATE 25 MG TABLET PO SCH ×2 (09:00→20:01)
[2018-01-30] MEDS: FAMOTIDINE 20 MG TABLET PO SCH ×2 (09:00→20:01)
[2018-01-30] MEDS: TAMSULOSIN 0.4 MG CAP.ER.24H PO SCH (09:00)
[2018-01-30] MEDS: VALSARTAN 80 MG TABLET PO SCH (09:00)
[2018-01-30] MEDS: CHOLECALCIFEROL 1,000 UNIT TABLET PO SCH (09:00)
[2018-01-30] MEDS ORDERED: GLYCOPYRROLATE 0.2MG/1ML, 5ML ONE (10:36)
[2018-01-30] MEDS ORDERED: KETOROLAC 30 MG/1 ML ONE (10:36)
[2018-01-30] MEDS ORDERED: NEOSTIGMINE 1 MG/ML, 10ML ONE (10:36)
[2018-01-30] MEDS ORDERED: LABETALOL 5MG/ML 40ML VIAL ONE (10:36)
[2018-01-30 13:28] VITALS: BP 175/90
[2018-01-30] MEDS ORDERED: FENTANYL PF 250 MCG/5ML ONE (13:57)
[2018-01-30] MEDS ORDERED: LIDOCAINE-MPF 2% ,5ML ONE (13:58)
[2018-01-30] MEDS ORDERED: PROPOFOL 10 MG/ML, 20ML ONE (13:58)
[2018-01-30] MEDS ORDERED: ROCURONIUM 10MG/ML,5ML ONE (13:59)
[2018-01-30] MEDS ORDERED: ONDANSETRON 2MG/ML, 2ML ONE ×2 (13:59)
[2018-01-30] MEDS ORDERED: DEXAMETHASONE 4 MG/ML, 1ML ONE ×2 (13:59)
[2018-01-30] MEDS ORDERED: CEFOTETAN PMX 2GM/50ML 50 ML ONE (13:59)
[2018-01-30] MEDS ORDERED: BUPIVACAINE/PF-EPI 0.5% 1:200K INFIL ONE (14:32)
[2018-01-30] MEDS ORDERED: FENTANYL PF 100 MCG/2ML ONE (14:58)
[2018-01-30] MEDS ORDERED: OXYcodone 5 MG/5 ML ORAL.SOL UDC PO PRN (15:00)
[2018-01-30] MEDS ORDERED: HALOPERIDOL 5 MG/ML IV PRN (15:00)
[2018-01-30] MEDS ORDERED: LABETALOL 5MG/ML, 20ML IV PRN (15:00)
[2018-01-30] MEDS ORDERED: LORazepam 2 MG/ML, 1ML IVPush PRN (15:00)
[2018-01-30] MEDS ORDERED: MEPERIDINE/PF 25MG/0.5ML IVPush PRN (15:00)
[2018-01-30] MEDS ORDERED: FENTANYL PF 100 MCG/2ML IV PRN (15:00)
[2018-01-30] MEDS ORDERED: HYDROmorphone 1 MG/ML, 1ML IV PRN (15:00)
[2018-01-30] MEDS: ERTAPENEM 1 GM in SODIUM CHLORIDE 0.9% 50 ML IV SCH (15:00)
[2018-01-30] MEDS ORDERED: PROMETHAZINE 25 MG/ML, 1ML IV PRN (15:00)
[2018-01-30] MEDS ORDERED: hydrALAzine 20 MG/ML, 1ML IV PRN (15:00)
[2018-01-30] MEDS: ENOXAPARIN 40 MG/0.4 ML SQ SCH (15:00)
[2018-01-30] MEDS ORDERED: OXYcodone 5 MG/5 ML ORAL.SOL UDC ONE (15:41)
[2018-01-30 18:39] VITALS: BP 166/98
[2018-01-30] MEDS: ATORVASTATIN 10 MG TABLET PO SCH (20:01)
[2018-01-30] MEDS: NS + 20MEQ KCL 1,000 ML IV SCH (22:49)
[2018-01-31 02:14] VITALS: BP 168/85
[2018-01-31 05:27] LABS: BASOPHILS # (AUTO) 0.01 x10^3/uL (0-0.1); BASOPHILS % (AUTO) 0 % (0-1); EOSINOPHILS % (AUTO) 0 % (1-7); LYMPHOCYTES # (AUTO) 0.48 x10^3/uL (1-3.4); LYMPHOCYTES % (AUTO) 7 % (22-44); MD NO; MEAN CORPUSCULAR HEMOGLOBIN 32.1 pg (27.5-34.5); MEAN CORPUSCULAR HGB CONC 34.9 g/dL (33.2-36.2); MEAN PLATELET VOLUME 7.6 fL (7.4-10.4); MONOCYTES # (AUTO) 0.53 x10^3/uL (0.2-0.8); MONOCYTES % (AUTO) 7 % (2-9); NEUTROPHILS # (AUTO) 6.19 x10^3/uL (1.8-6.8); NEUTROPHILS % (AUTO) 86 % (42-75); PLATELET COUNT 221 x10^3/uL (130-400); RED BLOOD COUNT 3.18 x10^6/uL (4.38-5.82); RED CELL DISTRIBUTION WIDTH 13.8 % (9.4-14.8)
[2018-01-31 05:48] LABS: CHLORIDE 102 mmol/L (98-107)
[2018-01-31 06:03] LABS: ANION GAP 11 mmol/L (5-15); CALCIUM 7.9 mg/dL (8.5-10.1); CREATININE 1.37 mg/dL (0.7-1.3)
[2018-01-31 06:04] LABS: ALANINE AMINOTRANSFERASE 236 U/L (12-78); ALBUMIN 1.8 g/dL (3.4-5.0); ALKALINE PHOSPHATASE 406 U/L (45-117); BILIRUBIN,TOTAL 1.2 mg/dL (0.2-1.0)
[2018-01-31] MEDS: TAMSULOSIN 0.4 MG CAP.ER.24H PO SCH (08:38)
[2018-01-31] MEDS: METOPROLOL TARTRATE 25 MG TABLET PO SCH ×2 (08:38→21:30)
[2018-01-31] MEDS: CHOLECALCIFEROL 1,000 UNIT TABLET PO SCH (08:38)
[2018-01-31] MEDS: FAMOTIDINE 20 MG TABLET PO SCH ×2 (08:38→21:30)
[2018-01-31] MEDS: VALSARTAN 80 MG TABLET PO SCH (08:38)
[2018-01-31 08:44] VITALS: BP 149/92
[2018-01-31] MEDS: NS + 20MEQ KCL 1,000 ML IV SCH (12:11)
[2018-01-31 14:20] VITALS: BP 128/77
[2018-01-31] MEDS: ENOXAPARIN 40 MG/0.4 ML SQ SCH (15:22)
[2018-01-31] MEDS: ERTAPENEM 1 GM in SODIUM CHLORIDE 0.9% 50 ML IV SCH (15:22)
[2018-01-31 19:56] VITALS: BP 166/82
[2018-01-31] MEDS: METHOCARBAMOL 750 MG TABLET PO PRN (21:30)
[2018-01-31] MEDS: ATORVASTATIN 10 MG TABLET PO SCH (21:30)
[2018-02-01] MEDS: HYDROcodone/APAP 5/325 TABLET PO PRN (01:15)
[2018-02-01 01:30] VITALS: BP 163/88
[2018-02-01 04:53] LABS: BASOPHILS # (AUTO) 0.03 x10^3/uL (0-0.1); BASOPHILS % (AUTO) 0 % (0-1); EOSINOPHILS # (AUTO) 0.03 x10^3/uL (0-0.4); EOSINOPHILS % (AUTO) 1 % (1-7); LYMPHOCYTES % (AUTO) 12 % (22-44); MD NO; MEAN CORPUSCULAR HEMOGLOBIN 31.5 pg (27.5-34.5); MEAN CORPUSCULAR HGB CONC 34.8 g/dL (33.2-36.2); MEAN CORPUSCULAR VOLUME 90.5 fL (81-97); MEAN PLATELET VOLUME 7.8 fL (7.4-10.4); MONOCYTES # (AUTO) 0.72 x10^3/uL (0.2-0.8); MONOCYTES % (AUTO) 12 % (2-9); NEUTROPHILS # (AUTO) 4.62 x10^3/uL (1.8-6.8); NEUTROPHILS % (AUTO) 76 % (42-75); PLATELET COUNT 207 x10^3/uL (130-400); RED BLOOD COUNT 2.86 x10^6/uL (4.38-5.82); RED CELL DISTRIBUTION WIDTH 13.8 % (9.4-14.8)
[2018-02-01 05:04] LABS: ALBUMIN 1.8 g/dL (3.4-5.0); ANION GAP 7 mmol/L (5-15); CALCIUM 7.4 mg/dL (8.5-10.1); CHLORIDE 105 mmol/L (98-107)
[2018-02-01 05:13] LABS: ALANINE AMINOTRANSFERASE 180 U/L (12-78); ALKALINE PHOSPHATASE 373 U/L (45-117); BILIRUBIN,TOTAL 0.9 mg/dL (0.2-1.0); CREATININE 1.15 mg/dL (0.7-1.3); TOTAL PROTEIN 5.4 g/dL (6.4-8.2)
[2018-02-01 07:04] VITALS: BP 150/94
[2018-02-01] MEDS: VALSARTAN 80 MG TABLET PO SCH (08:13)
[2018-02-01] MEDS: CHOLECALCIFEROL 1,000 UNIT TABLET PO SCH (08:13)
[2018-02-01] MEDS: FAMOTIDINE 20 MG TABLET PO SCH (08:13)
[2018-02-01] MEDS: METOPROLOL TARTRATE 25 MG TABLET PO SCH (08:15)
[2018-02-01] MEDS: TAMSULOSIN 0.4 MG CAP.ER.24H PO SCH (08:15)
[2018-02-01 13:38] VITALS: BP 177/80
[2018-02-01] MEDS: ENOXAPARIN 40 MG/0.4 ML SQ SCH (14:36)
[2018-02-01] MEDS: ERTAPENEM 1 GM in SODIUM CHLORIDE 0.9% 50 ML IV SCH (14:36)
[2018-02-01] MEDS ORDERED: ERTA1VIA IV (15:29)
[2018-02-01 15:38] VITALS: BP 175/89
[2018-02-01] MEDS ORDERED: OXYC5CAP2 PO (17:42)
== END 2018-02-01 17:49 | disposition home or self-care (01) | DRG 28 ==
LOC: ED 12:35 → EDIP 15:13 → OBSVTOIN 15:13 → INTOOBSV 15:13 → 4NOR 16:39
PROVIDERS: ADMIT Hospitalist; ATTEND Family Medicine
PROC: 01NB0ZZ Release Lumbar Nerve, Open Approach (ICD-10-PCS; 2018-01-24)
PROC: 00UT0JZ Supplement Spinal Meninges with Synthetic Substitute, Open Approach (ICD-10-PCS; principal; 2018-01-24 13:30)
PROC: 02HV33Z Insertion of Infusion Device into Superior Vena Cava, Percutaneous Approach (ICD-10-PCS; 2018-01-29)
PROC: B5181ZA Fluoroscopy of Superior Vena Cava using Low Osmolar Contrast, Guidance (ICD-10-PCS; 2018-01-29)
PROC: B548ZZA Ultrasonography of Superior Vena Cava, Guidance (ICD-10-PCS; 2018-01-29)
PROC: 0FT44ZZ Resection of Gallbladder, Percutaneous Endoscopic Approach (ICD-10-PCS; 2018-01-30)
DX: G96.0 Cerebrospinal fluid leak (principal); E43 Unspecified severe protein-calorie malnutrition; G03.9 Meningitis, unspecified; M96.842 Postprocedural seroma of a musculoskeletal structure following a musculoskeletal system procedure; T81.4XXA Infection following a procedure, initial encounter; K81.2 Acute cholecystitis with chronic cholecystitis; M46.20 Osteomyelitis of vertebra, site unspecified; G96.19 Other disorders of meninges, not elsewhere classified; B95.61 Methicillin susceptible Staphylococcus aureus infection as the cause of diseases classified elsewhere; I25.2 Old myocardial infarction; M48.061 Spinal stenosis, lumbar region without neurogenic claudication; E87.6 Hypokalemia; Y83.8 Other surgical procedures as the cause of abnormal reaction of the patient, or of later complication, without mention of misadventure at the time of the procedure; I10 Essential (primary) hypertension; I25.10 Atherosclerotic heart disease of native coronary artery without angina pectoris; K75.89 Other specified inflammatory liver diseases; Z80.1 Family history of malignant neoplasm of trachea, bronchus and lung; Z95.5 Presence of coronary angioplasty implant and graft; E78.5 Hyperlipidemia, unspecified
CPT/HCPCS: 36415; 36569; 72158; 76700; 76937; 77001; 78226; 80053; 83605; 83735; 84100; 84145; 84439; 84443; 85025; 85651; 86140; 87040; 87070; 87077; 87186; 87205; 88304; 96374; 96375; 99285; A9585; J0171; J0690; J0697; J1100; J1170; J1335; J1650; J1885; J2270; J2405; J2704; J2710; J3010; J3370; J3480; J3490; A9537; C1751; C1781; J0330; J2800; J7030; S0074

== ENCOUNTER 2018-02-23 01:11 | Inpatient (IN) | payer MEDICARE, OTHER ==
[~2018-02-23] VITALS: Ht 172.7 cm; Wt 77.7 kg
[~2018-02-23 01:11] MED LIST changes: +ERTA1VIA IV; +MAGN100T6 PO; +OXYC5CAP2 PO
[2018-02-23] MEDS ORDERED: SODIUM CHLORIDE FLUSH 10ML SYR IVF ONE (01:30)
[2018-02-23 01:54] LABS: BASOPHILS # (AUTO) 0.03 x10^3/uL (0-0.1); BASOPHILS % (AUTO) 1 % (0-1); EOSINOPHILS # (AUTO) 0.07 x10^3/uL (0-0.4); EOSINOPHILS % (AUTO) 1 % (1-7); LYMPHOCYTES # (AUTO) 1.66 x10^3/uL (1-3.4); LYMPHOCYTES % (AUTO) 23 % (22-44); MD NO; MEAN CORPUSCULAR HEMOGLOBIN 30.9 pg (27.5-34.5); MEAN CORPUSCULAR HGB CONC 34.7 g/dL (33.2-36.2); MEAN CORPUSCULAR VOLUME 88.9 fL (81-97); MEAN PLATELET VOLUME 8.3 fL (7.4-10.4); MONOCYTES # (AUTO) 0.65 x10^3/uL (0.2-0.8); MONOCYTES % (AUTO) 9 % (2-9); NEUTROPHILS # (AUTO) 4.73 x10^3/uL (1.8-6.8); NEUTROPHILS % (AUTO) 66 % (42-75); PLATELET COUNT 188 x10^3/uL (130-400); RED BLOOD COUNT 3.09 x10^6/uL (4.38-5.82); RED CELL DISTRIBUTION WIDTH 14.8 % (9.4-14.8)
[2018-02-23 01:59] LABS: INTERNATIONAL NORMALIZED RATIO 1.16 (0.93-1.1); PROTHROMBIN TIME 11.9 Seconds (9.6-11.5)
[2018-02-23] MEDS ORDERED: FUROSEMIDE 40 MG/4 ML IV ONE (02:00)
[2018-02-23 02:01] LABS: ANION GAP 5 mmol/L (5-15); CALCIUM 7.7 mg/dL (8.5-10.1); CHLORIDE 112 mmol/L (98-107); CREATININE 0.87 mg/dL (0.7-1.3)
[2018-02-23 02:02] LABS: ALANINE AMINOTRANSFERASE 25 U/L (12-78); ALBUMIN 2.2 g/dL (3.4-5.0)
[2018-02-23 02:06] LABS: ALKALINE PHOSPHATASE 178 U/L (45-117); BILIRUBIN,TOTAL 0.7 mg/dL (0.2-1.0); TOTAL PROTEIN 6.1 g/dL (6.4-8.2); TROPONIN I 0.081 ng/mL (0.000-0.045)
[2018-02-23 02:12] LABS: THYROID STIMULATING HORMONE 0.429 mIU/L (0.358-3.740)
[2018-02-23] MEDS ORDERED: FUROSEMIDE 20 MG/2 ML ONE (02:16)
[2018-02-23] MEDS ORDERED: DAPT500V6 IV (02:30)
[2018-02-23] MEDS ORDERED: NITROGLYCERIN OINT 2%, 1GM TP ONE ×2 (02:30→02:31)
[2018-02-23] MEDS ORDERED: ASPIRIN 325 MG TABLET PO ONE (02:30)
[2018-02-23] MEDS ORDERED: ASPIRIN 325 MG TABLET ONE (02:31)
[2018-02-23] MEDS ORDERED: BISACODYL 10 MG SUPP PR PRN (03:30)
[2018-02-23] MEDS ORDERED: LABETALOL 5MG/ML, 20ML IVPush PRN (03:30)
[2018-02-23] MEDS ORDERED: PROMETHAZINE 25 MG/ML, 1ML IM PRN (03:30)
[2018-02-23] MEDS ORDERED: DOCUSATE 100 MG CAPSULE PO PRN (03:30)
[2018-02-23] MEDS: METHOCARBAMOL 750 MG TABLET PO SCH ×3 (03:30→19:29)
[2018-02-23] MEDS ORDERED: MAGNESIUM CITRATE 100 MG PO PRN (03:30)
[2018-02-23] MEDS ORDERED: POLYETHYLENE GLYCOL 17 GM PACKET PO PRN (03:30)
[2018-02-23] MEDS ORDERED: ONDANSETRON 2MG/ML, 2ML IVPush PRN (03:30)
[2018-02-23] MEDS ORDERED: hydrALAzine 20 MG/ML, 1ML IVPush PRN (03:30)
[2018-02-23] MEDS ORDERED: morphine SULFATE 10 MG/ML, 1ML IVPush PRN (03:30)
[2018-02-23] MEDS ORDERED: ONDANSETRON ODT 4 MG PO PRN (03:30)
[2018-02-23] MEDS ORDERED: ACETAMINOPHEN 325 MG TABLET PO PRN (03:30)
[2018-02-23] MEDS ORDERED: GABAPENTIN 300 MG CAPSULE PO PRN (03:30)
[2018-02-23] MEDS: ENOXAPARIN 40 MG/0.4 ML SQ SCH (03:37)
[2018-02-23 03:46] LABS: HEMOGLOBIN A1C 5.5 % (4.2-6.3)
[2018-02-23 04:01] LABS: MICROSCOPIC INDICATED
[2018-02-23 04:10] LABS: CULTURE INDICATED? NO
[2018-02-23 04:11] VITALS: BP 186/102
[2018-02-23 05:10] VITALS: BP 162/95
[2018-02-23 07:18] VITALS: BP 164/93
[2018-02-23 07:20] LABS: TROPONIN I 0.085 ng/mL (0.000-0.045)
[2018-02-23] MEDS ORDERED: LOSA50TA7 PO (07:45)
[2018-02-23] MEDS ORDERED: TURMERIC ROOT EXTRACT PO SCH (09:00)
[2018-02-23] MEDS ORDERED: VALSARTAN 80 MG TABLET PO SCH (09:00)
[2018-02-23] MEDS ORDERED: TURMERIC PO SCH (09:00)
[2018-02-23] MEDS ORDERED: [UNRECOGNIZED DRUG - OTHER] PO SCH (09:00)
[2018-02-23] MEDS: FAMOTIDINE 20 MG TABLET PO SCH ×2 (09:23→20:55)
[2018-02-23] MEDS: FUROSEMIDE 20 MG/2 ML IV SCH ×2 (09:23→17:08)
[2018-02-23] MEDS: METOPROLOL TARTRATE 25 MG TABLET PO SCH ×2 (09:24→20:55)
[2018-02-23] MEDS: CHOLECALCIFEROL 1,000 UNIT TABLET PO SCH (09:24)
[2018-02-23] MEDS: MULTIVITAMINS/MINERALS TABLET PO SCH (09:24)
[2018-02-23] MEDS: ASPIRIN 81 MG TABLET EC PO SCH (09:24)
[2018-02-23 14:05] VITALS: BP 163/95
[2018-02-23] MEDS ORDERED: OMNIPAQUE 350 MG/ML, 100ML BOTTLE ONE (14:51)
[2018-02-23 15:39] LABS: TROPONIN I 0.076 ng/mL (0.000-0.045)
[2018-02-23] MEDS: POTASSIUM CHLORIDE 20 MEQ TAB.ER.PRT PO SCH (17:08)
[2018-02-23 18:51] VITALS: BP 160/92
[2018-02-23] MEDS: DAPTOMYCIN 470 MG in SODIUM CHLORIDE 0.9% 100 ML IVPB SCH (19:29)
[2018-02-23] MEDS: ATORVASTATIN 10 MG TABLET PO SCH (20:55)
[2018-02-23] MEDS: LOSARTAN 50MG TABLET PO SCH (20:55)
[2018-02-24] MEDS: ENOXAPARIN 40 MG/0.4 ML SQ SCH (02:06)
[2018-02-24] MEDS: METHOCARBAMOL 750 MG TABLET PO SCH ×3 (02:06→20:05)
[2018-02-24 02:30] VITALS: BP 156/89
[2018-02-24 03:44] LABS: BASOPHILS # (AUTO) 0.05 x10^3/uL (0-0.1); BASOPHILS % (AUTO) 1 % (0-1); EOSINOPHILS # (AUTO) 0.14 x10^3/uL (0-0.4); EOSINOPHILS % (AUTO) 2 % (1-7); LYMPHOCYTES # (AUTO) 1.46 x10^3/uL (1-3.4); LYMPHOCYTES % (AUTO) 22 % (22-44); MD NO; MEAN CORPUSCULAR HEMOGLOBIN 29.8 pg (27.5-34.5); MEAN CORPUSCULAR VOLUME 87.7 fL (81-97); MEAN PLATELET VOLUME 8.1 fL (7.4-10.4); MONOCYTES # (AUTO) 0.74 x10^3/uL (0.2-0.8); MONOCYTES % (AUTO) 11 % (2-9); NEUTROPHILS % (AUTO) 64 % (42-75); PLATELET COUNT 197 x10^3/uL (130-400); RED BLOOD COUNT 3.01 x10^6/uL (4.38-5.82)
[2018-02-24 03:55] LABS: ANION GAP 5 mmol/L (5-15); CALCIUM 7.7 mg/dL (8.5-10.1); CHLORIDE 108 mmol/L (98-107)
[2018-02-24 04:01] LABS: ALANINE AMINOTRANSFERASE 19 U/L (12-78); ALKALINE PHOSPHATASE 141 U/L (45-117); BILIRUBIN,TOTAL 0.8 mg/dL (0.2-1.0); CHOL/HDL RATIO 3.4; CHOLESTEROL, TOTAL 92 mg/dL (140-239); CREATININE 0.73 mg/dL (0.7-1.3); HDL CHOL % 29 % (26-37); HDL CHOLESTEROL (DIRECT) 27 mg/dL (40-60); LDL CHOLESTEROL,CALCULATED 47 mg/dL (54-169); LDL/HDL RATIO 1.7 (0.5-3.0); TOTAL PROTEIN 5.7 g/dL (6.4-8.2); TRIGLYCERIDES 90 mg/dL (50-200); VLDL CHOLESTEROL 18 mg/dL (0-25)
[2018-02-24 06:37] VITALS: BP 163/96
[2018-02-24] MEDS: MULTIVITAMINS/MINERALS TABLET PO SCH (09:00)
[2018-02-24] MEDS: FUROSEMIDE 20 MG/2 ML IV SCH ×2 (09:26→17:50)
[2018-02-24] MEDS: POTASSIUM CHLORIDE 20 MEQ TAB.ER.PRT PO SCH ×2 (09:26→17:50)
[2018-02-24] MEDS: METOPROLOL TARTRATE 25 MG TABLET PO SCH ×2 (09:27→20:19)
[2018-02-24] MEDS: CHOLECALCIFEROL 1,000 UNIT TABLET PO SCH (09:27)
[2018-02-24] MEDS: LOSARTAN 50MG TABLET PO SCH ×2 (09:27→20:18)
[2018-02-24] MEDS: FAMOTIDINE 20 MG TABLET PO SCH ×2 (09:27→20:18)
[2018-02-24] MEDS: ASPIRIN 81 MG TABLET EC PO SCH (09:27)
[2018-02-24] MEDS: IRON SUCROSE COMPLEX 100MG/5ML IV SCH (09:34)
[2018-02-24 13:46] VITALS: BP 149/95
[2018-02-24 19:15] VITALS: BP 157/91
[2018-02-24] MEDS: DAPTOMYCIN 470 MG in SODIUM CHLORIDE 0.9% 100 ML IVPB SCH (20:05)
[2018-02-24] MEDS: ATORVASTATIN 10 MG TABLET PO SCH (20:16)
[2018-02-25 01:19] VITALS: BP 147/92
[2018-02-25] MEDS: METHOCARBAMOL 750 MG TABLET PO SCH ×3 (03:30→20:03)
[2018-02-25] MEDS: ENOXAPARIN 40 MG/0.4 ML SQ SCH (03:50)
[2018-02-25 04:18] LABS: ANION GAP 8 mmol/L (5-15); CALCIUM 8.2 mg/dL (8.5-10.1); CHLORIDE 105 mmol/L (98-107); CREATININE 0.83 mg/dL (0.7-1.3)
[2018-02-25 04:19] LABS: BASOPHILS # (AUTO) 0.05 x10^3/uL (0-0.1); BASOPHILS % (AUTO) 1 % (0-1); EOSINOPHILS # (AUTO) 0.13 x10^3/uL (0-0.4); EOSINOPHILS % (AUTO) 2 % (1-7); LYMPHOCYTES # (AUTO) 2.34 x10^3/uL (1-3.4); LYMPHOCYTES % (AUTO) 31 % (22-44); MD NO; MEAN CORPUSCULAR HEMOGLOBIN 30.8 pg (27.5-34.5); MEAN CORPUSCULAR HGB CONC 34.7 g/dL (33.2-36.2); MEAN CORPUSCULAR VOLUME 88.5 fL (81-97); MEAN PLATELET VOLUME 8.3 fL (7.4-10.4); MONOCYTES # (AUTO) 0.91 x10^3/uL (0.2-0.8); MONOCYTES % (AUTO) 12 % (2-9); NEUTROPHILS # (AUTO) 4.17 x10^3/uL (1.8-6.8); NEUTROPHILS % (AUTO) 55 % (42-75); PLATELET COUNT 230 x10^3/uL (130-400); RED BLOOD COUNT 3.17 x10^6/uL (4.38-5.82); RED CELL DISTRIBUTION WIDTH 14.7 % (9.4-14.8)
[2018-02-25 06:25] VITALS: BP 155/85
[2018-02-25] MEDS: MULTIVITAMINS/MINERALS TABLET PO SCH (08:17)
[2018-02-25] MEDS: POTASSIUM CHLORIDE 20 MEQ TAB.ER.PRT PO SCH ×2 (08:17→16:59)
[2018-02-25] MEDS: FUROSEMIDE 20 MG/2 ML IV SCH ×2 (08:17→16:59)
[2018-02-25] MEDS: IRON SUCROSE COMPLEX 100MG/5ML IV SCH (08:17)
[2018-02-25] MEDS: ASPIRIN 81 MG TABLET EC PO SCH (08:18)
[2018-02-25] MEDS: FAMOTIDINE 20 MG TABLET PO SCH ×2 (08:18→20:03)
[2018-02-25] MEDS: CHOLECALCIFEROL 1,000 UNIT TABLET PO SCH (08:18)
[2018-02-25] MEDS: METOPROLOL TARTRATE 25 MG TABLET PO SCH ×2 (08:20→20:02)
[2018-02-25] MEDS: LOSARTAN 50MG TABLET PO SCH ×2 (08:20→20:02)
[2018-02-25 14:22] VITALS: BP 154/88
[2018-02-25 19:47] VITALS: BP 155/90
[2018-02-25] MEDS: ATORVASTATIN 10 MG TABLET PO SCH (20:02)
[2018-02-25] MEDS: DAPTOMYCIN 470 MG in SODIUM CHLORIDE 0.9% 100 ML IVPB SCH (20:02)
[2018-02-26 02:00] VITALS: BP 169/82
[2018-02-26] MEDS: ENOXAPARIN 40 MG/0.4 ML SQ SCH (03:30)
[2018-02-26] MEDS: METHOCARBAMOL 750 MG TABLET PO SCH ×3 (03:30→19:30)
[2018-02-26] MEDS: FUROSEMIDE 20 MG/2 ML IV SCH (07:34)
[2018-02-26] MEDS: POTASSIUM CHLORIDE 20 MEQ TAB.ER.PRT PO SCH (07:34)
[2018-02-26 07:50] VITALS: BP 171/92
[2018-02-26] MEDS: IRON SUCROSE COMPLEX 100MG/5ML IV SCH (09:35)
[2018-02-26] MEDS: MULTIVITAMINS/MINERALS TABLET PO SCH (09:36)
[2018-02-26] MEDS: FAMOTIDINE 20 MG TABLET PO SCH ×2 (09:37→20:49)
[2018-02-26] MEDS: LOSARTAN 50MG TABLET PO SCH ×2 (09:37→20:49)
[2018-02-26] MEDS: METOPROLOL TARTRATE 25 MG TABLET PO SCH ×2 (09:37→20:49)
[2018-02-26] MEDS: ASPIRIN 81 MG TABLET EC PO SCH (09:37)
[2018-02-26] MEDS: CHOLECALCIFEROL 1,000 UNIT TABLET PO SCH (09:37)
[2018-02-26] MEDS ORDERED: LOSA50TA2 PO (11:55)
[2018-02-26] MEDS ORDERED: POTA20TA6 PO (11:55)
[2018-02-26] MEDS ORDERED: FURO20TA3 PO (11:55)
[2018-02-26] MEDS ORDERED: FERR325T16 PO (12:01)
[2018-02-26 13:33] VITALS: BP 152/82
[2018-02-26] MEDS: DAPTOMYCIN 470 MG in SODIUM CHLORIDE 0.9% 100 ML IVPB SCH (15:03)
[2018-02-26] MEDS: ATORVASTATIN 10 MG TABLET PO SCH (20:49)
[2018-02-26 20:53] VITALS: BP 144/78
[2018-02-27 02:39] VITALS: BP 134/77
[2018-02-27] MEDS: METHOCARBAMOL 750 MG TABLET PO SCH (03:30)
[2018-02-27] MEDS: ENOXAPARIN 40 MG/0.4 ML SQ SCH (03:30)
[2018-02-27 07:48] VITALS: BP 157/88
[2018-02-27] MEDS: LOSARTAN 50MG TABLET PO SCH (07:49)
[2018-02-27] MEDS: ASPIRIN 81 MG TABLET EC PO SCH (07:50)
[2018-02-27] MEDS: METOPROLOL TARTRATE 25 MG TABLET PO SCH (07:50)
[2018-02-27] MEDS: CHOLECALCIFEROL 1,000 UNIT TABLET PO SCH (07:50)
[2018-02-27] MEDS: MULTIVITAMINS/MINERALS TABLET PO SCH (07:50)
[2018-02-27] MEDS: FAMOTIDINE 20 MG TABLET PO SCH (07:50)
[2018-02-27] MEDS: IRON SUCROSE COMPLEX 100MG/5ML IV SCH (07:50)
== END 2018-02-27 10:49 | disposition home or self-care (01) | DRG 291 ==
LOC: ED 02:23 → 5SO 03:10
PROVIDERS: ADMIT Internal Medicine; ATTEND Internal Medicine
DX: I11.0 Hypertensive heart disease with heart failure (principal); J96.01 Acute respiratory failure with hypoxia; E44.0 Moderate protein-calorie malnutrition; I44.0 Atrioventricular block, first degree; I25.10 Atherosclerotic heart disease of native coronary artery without angina pectoris; I27.20 Pulmonary hypertension, unspecified; I50.33 Acute on chronic diastolic (congestive) heart failure; E78.5 Hyperlipidemia, unspecified; D64.9 Anemia, unspecified; Z68.26 Body mass index [BMI] 26.0-26.9, adult; Z95.5 Presence of coronary angioplasty implant and graft; I25.2 Old myocardial infarction; Z72.89 Other problems related to lifestyle; Z90.49 Acquired absence of other specified parts of digestive tract; Z79.82 Long term (current) use of aspirin; Z79.899 Other long term (current) drug therapy; Z74.01 Bed confinement status; Z99.81 Dependence on supplemental oxygen
CPT/HCPCS: 0399T; 36415; 71045; 71275; 80048; 80053; 80061; 81001; 82728; 83036; 83540; 83550; 83735; 83880; 84439; 84443; 84466; 84484; 85025; 85610; 93005; 93306; 96374; G0378; J0878; J1756; J1940; Q9967; J0360

== ENCOUNTER → 2018-03-02 | Outpatient (CLI) | payer MEDICARE, OTHER ==
[~2018-03-02] MED LIST changes: +DAPT500V6 IV; +FERR325T16 PO; +FURO20TA3 PO; +LOSA50TA2 PO; +LOSA50TA7 PO; +POTA20TA6 PO
[2018-03-02 11:53] LABS: BASOPHILS # (AUTO) 0.05 x10^3/uL (0-0.1); BASOPHILS % (AUTO) 1 % (0-1); EOSINOPHILS % (AUTO) 5 % (1-7); LYMPHOCYTES # (AUTO) 2.01 x10^3/uL (1-3.4); LYMPHOCYTES % (AUTO) 31 % (22-44); MD NO; MEAN CORPUSCULAR HEMOGLOBIN 29.6 pg (27.5-34.5); MEAN CORPUSCULAR HGB CONC 33.3 g/dL (33.2-36.2); MEAN CORPUSCULAR VOLUME 88.7 fL (81-97); MEAN PLATELET VOLUME 8.1 fL (7.4-10.4); MONOCYTES % (AUTO) 9 % (2-9); NEUTROPHILS # (AUTO) 3.52 x10^3/uL (1.8-6.8); NEUTROPHILS % (AUTO) 54 % (42-75); PLATELET COUNT 259 x10^3/uL (130-400); RED BLOOD COUNT 3.43 x10^6/uL (4.38-5.82); RED CELL DISTRIBUTION WIDTH 15.5 % (9.4-14.8)
[2018-03-02 12:12] LABS: ALANINE AMINOTRANSFERASE 25 U/L (12-78); ALBUMIN 2.3 g/dL (3.4-5.0); ANION GAP 8 mmol/L (5-15); CALCIUM 8.8 mg/dL (8.5-10.1); CHLORIDE 108 mmol/L (98-107)
[2018-03-02 12:21] LABS: ALKALINE PHOSPHATASE 125 U/L (45-117); BILIRUBIN,TOTAL 0.7 mg/dL (0.2-1.0); CHOLESTEROL, TOTAL 104 mg/dL (140-239); HDL CHOL % 25 % (26-37); HDL CHOLESTEROL (DIRECT) 26 mg/dL (40-60); LDL CHOLESTEROL,CALCULATED 55 mg/dL (54-169); LDL/HDL RATIO 2.1 (0.5-3.0); T4 (THYROXINE) 5.2 mcg/dL (4.5-12.1); TOTAL PROTEIN 6.5 g/dL (6.4-8.2); TRIGLYCERIDES 113 mg/dL (50-200); VLDL CHOLESTEROL 23 mg/dL (0-25)
== END | disposition home or self-care (01) ==
LOC: CFH 08:12
PROVIDERS: ATTEND Internal Medicine Cardiovascular Disease
DX: I10 Essential (primary) hypertension (principal); E78.2 Mixed hyperlipidemia
CPT/HCPCS: 36415; 80053; 80061; 84436; 84481; 85025

== ENCOUNTER 2018-03-08 09:48 | Inpatient (IN) | payer OTHER, MEDICARE ==
[~2018-03-08] VITALS: Ht 175.3 cm; Wt 71.8 kg
[2018-03-08] MEDS ORDERED: SODIUM CHLORIDE FLUSH 10ML SYR IVF ONE (10:30)
[2018-03-08 11:05] LABS: BASOPHILS # (AUTO) 0.01 x10^3/uL (0-0.1); BASOPHILS % (AUTO) 0 % (0-1); EOSINOPHILS # (AUTO) 0.46 x10^3/uL (0-0.4); EOSINOPHILS % (AUTO) 4 % (1-7); LYMPHOCYTES # (AUTO) 0.76 x10^3/uL (1-3.4); LYMPHOCYTES % (AUTO) 7 % (22-44); MD NO; MEAN CORPUSCULAR VOLUME 88.2 fL (81-97); MEAN PLATELET VOLUME 7.9 fL (7.4-10.4); MONOCYTES # (AUTO) 0.59 x10^3/uL (0.2-0.8); MONOCYTES % (AUTO) 5 % (2-9); NEUTROPHILS # (AUTO) 9.59 x10^3/uL (1.8-6.8); NEUTROPHILS % (AUTO) 84 % (42-75); PLATELET COUNT 294 x10^3/uL (130-400); RED BLOOD COUNT 3.36 x10^6/uL (4.38-5.82); RED CELL DISTRIBUTION WIDTH 15.9 % (9.4-14.8)
[2018-03-08 11:14] LABS: INTERNATIONAL NORMALIZED RATIO 1.2 (0.93-1.1); PROTHROMBIN TIME 12.4 Seconds (9.6-11.5)
[2018-03-08 11:19] LABS: ALANINE AMINOTRANSFERASE 32 U/L (12-78); ANION GAP 11 mmol/L (5-15); CALCIUM 8.5 mg/dL (8.5-10.1); CHLORIDE 108 mmol/L (98-107); CREATININE 1.12 mg/dL (0.7-1.3)
[2018-03-08 11:23] LABS: ALKALINE PHOSPHATASE 126 U/L (45-117); BILIRUBIN,TOTAL 0.7 mg/dL (0.2-1.0); TOTAL PROTEIN 6.6 g/dL (6.4-8.2); TROPONIN I 0.017 ng/mL (0.000-0.045)
[2018-03-08] MEDS ORDERED: SODIUM CHLORIDE FLUSH 10ML SYR IVF PRN (12:00)
[2018-03-08] MEDS ORDERED: POLYETHYLENE GLYCOL 17 GM PACKET PO PRN (13:30)
[2018-03-08] MEDS ORDERED: ACETAMINOPHEN 325 MG TABLET PO PRN (13:30)
[2018-03-08] MEDS ORDERED: ENALAPRILAT 1.25 MG/ML, 2ML IVPush PRN (13:30)
[2018-03-08 13:44] VITALS: BP 120/74
[2018-03-08] MEDS: ENOXAPARIN 30 MG/0.3 ML SQ SCH (15:05)
[2018-03-08] MEDS: CEFEPIME 2 GM in DEXTROSE 5% 100 ML IV SCH (15:05)
[2018-03-08 15:50] LABS: TROPONIN I < 0.015 ng/mL (0.000-0.045)
[2018-03-08] MEDS: FERROUS GLUCONATE 324 MG TABLET PO SCH (17:37)
[2018-03-08 20:02] VITALS: BP 131/73
[2018-03-08] MEDS: METOPROLOL TARTRATE 25 MG TABLET PO SCH (20:27)
[2018-03-08] MEDS ORDERED: LACTULOSE 10 GM/15 ML UDC PO SCH (21:00)
[2018-03-08 22:30] VITALS: BP 94/62
[2018-03-09] MEDS ORDERED: OMNIPAQUE 350 MG/ML, 100ML BOTTLE ONE (00:58)
[2018-03-09 02:04] VITALS: BP 112/70
[2018-03-09] MEDS: CEFEPIME 2 GM in DEXTROSE 5% 100 ML IV SCH ×2 (03:09→16:08)
[2018-03-09] MEDS: ENOXAPARIN 30 MG/0.3 ML SQ SCH ×2 (03:09→16:08)
[2018-03-09 05:48] LABS: ALANINE AMINOTRANSFERASE 32 U/L (12-78); ALBUMIN 1.6 g/dL (3.4-5.0); ANION GAP 8 mmol/L (5-15); CHLORIDE 108 mmol/L (98-107)
[2018-03-09 05:50] LABS: ALKALINE PHOSPHATASE 118 U/L (45-117); BILIRUBIN,TOTAL 0.6 mg/dL (0.2-1.0)
[2018-03-09 05:56] LABS: BASOPHILS # (AUTO) 0.01 x10^3/uL (0-0.1); BASOPHILS % (AUTO) 0 % (0-1); EOSINOPHILS # (AUTO) 0.56 x10^3/uL (0-0.4); EOSINOPHILS % (AUTO) 5 % (1-7); LYMPHOCYTES # (AUTO) 1.48 x10^3/uL (1-3.4); LYMPHOCYTES % (AUTO) 12 % (22-44); MD NO; MEAN CORPUSCULAR HGB CONC 33.7 g/dL (33.2-36.2); MEAN CORPUSCULAR VOLUME 89.2 fL (81-97); MONOCYTES # (AUTO) 0.55 x10^3/uL (0.2-0.8); MONOCYTES % (AUTO) 5 % (2-9); NEUTROPHILS # (AUTO) 9.62 x10^3/uL (1.8-6.8); NEUTROPHILS % (AUTO) 79 % (42-75); PLATELET COUNT 282 x10^3/uL (130-400); RED CELL DISTRIBUTION WIDTH 16.3 % (9.4-14.8)
[2018-03-09] MEDS: ASPIRIN 81 MG TABLET EC PO SCH (08:04)
[2018-03-09] MEDS: FERROUS GLUCONATE 324 MG TABLET PO SCH ×2 (08:05→16:08)
[2018-03-09] MEDS: METOPROLOL TARTRATE 25 MG TABLET PO SCH ×2 (08:05→21:42)
[2018-03-09] MEDS: MAGNESIUM OXIDE 400 MG TABLET PO SCH (08:05)
[2018-03-09] MEDS: CHOLECALCIFEROL 1,000 UNIT TABLET PO SCH (08:05)
[2018-03-09] MEDS: POTASSIUM CHLORIDE 20 MEQ TAB.ER.PRT PO SCH (08:05)
[2018-03-09 08:27] VITALS: BP 124/71
[2018-03-09] MEDS ORDERED: SENNA/DOCUSATE TABLET PO SCH (09:00)
[2018-03-09] MEDS ORDERED: SENNA/DOCUSATE TABLET PO PRN (09:00)
[2018-03-09] MEDS ORDERED: FUROSEMIDE 20 MG TABLET PO SCH (09:00)
[2018-03-09 13:33] VITALS: BP 113/69
[2018-03-09 14:19] LABS: RAPID INFLUENZA A Negative (Negative); RAPID INFLUENZA B Negative (Negative)
[2018-03-09] MEDS ORDERED: FUROSEMIDE 40 MG/4 ML IV ONE (18:30)
[2018-03-10] MEDS: ENOXAPARIN 30 MG/0.3 ML SQ SCH ×2 (03:49→15:08)
[2018-03-10] MEDS: CEFEPIME 2 GM in DEXTROSE 5% 100 ML IV SCH ×2 (04:18→15:07)
[2018-03-10 04:22] LABS: BASOPHILS # (AUTO) 0.01 x10^3/uL (0-0.1); BASOPHILS % (AUTO) 0 % (0-1); EOSINOPHILS # (AUTO) 0.54 x10^3/uL (0-0.4); EOSINOPHILS % (AUTO) 5 % (1-7); LYMPHOCYTES # (AUTO) 1.05 x10^3/uL (1-3.4); LYMPHOCYTES % (AUTO) 9 % (22-44); MD NO; MEAN CORPUSCULAR HEMOGLOBIN 28.7 pg (27.5-34.5); MEAN CORPUSCULAR VOLUME 86.9 fL (81-97); MEAN PLATELET VOLUME 7.7 fL (7.4-10.4); MONOCYTES # (AUTO) 0.44 x10^3/uL (0.2-0.8); MONOCYTES % (AUTO) 4 % (2-9); NEUTROPHILS # (AUTO) 9.25 x10^3/uL (1.8-6.8); NEUTROPHILS % (AUTO) 82 % (42-75); PLATELET COUNT 287 x10^3/uL (130-400); RED BLOOD COUNT 3.13 x10^6/uL (4.38-5.82); RED CELL DISTRIBUTION WIDTH 16.3 % (9.4-14.8)
[2018-03-10 04:24] LABS: ANION GAP 10 mmol/L (5-15); CALCIUM 8.1 mg/dL (8.5-10.1); CHLORIDE 108 mmol/L (98-107); CREATININE 0.91 mg/dL (0.7-1.3)
[2018-03-10] MEDS: FUROSEMIDE 20 MG/2 ML IV SCH ×2 (08:54→17:04)
[2018-03-10] MEDS: FERROUS GLUCONATE 324 MG TABLET PO SCH ×2 (08:55→17:04)
[2018-03-10] MEDS: POTASSIUM CHLORIDE 20 MEQ TAB.ER.PRT PO SCH (08:55)
[2018-03-10] MEDS: ASPIRIN 81 MG TABLET EC PO SCH (08:55)
[2018-03-10] MEDS: METOPROLOL TARTRATE 25 MG TABLET PO SCH ×2 (08:55→20:05)
[2018-03-10] MEDS: MAGNESIUM OXIDE 400 MG TABLET PO SCH (08:56)
[2018-03-10] MEDS: CHOLECALCIFEROL 1,000 UNIT TABLET PO SCH (08:56)
[2018-03-10] MEDS: ONDANSETRON ODT 4 MG PO PRN ×2 (12:26→17:07)
[2018-03-10] MEDS: DOXYCYCLINE 100MG TABLET PO SCH (20:05)
[2018-03-11] MEDS: CEFEPIME 2 GM in DEXTROSE 5% 100 ML IV SCH ×2 (03:26→15:22)
[2018-03-11] MEDS: ENOXAPARIN 30 MG/0.3 ML SQ SCH ×2 (03:27→15:23)
[2018-03-11 03:59] LABS: ALANINE AMINOTRANSFERASE 41 U/L (12-78); ALBUMIN 1.4 g/dL (3.4-5.0); ANION GAP 7 mmol/L (5-15); CALCIUM 8.1 mg/dL (8.5-10.1); CHLORIDE 108 mmol/L (98-107); CREATININE 0.99 mg/dL (0.7-1.3)
[2018-03-11 04:01] LABS: ALKALINE PHOSPHATASE 125 U/L (45-117); BILIRUBIN,TOTAL 0.4 mg/dL (0.2-1.0); TOTAL PROTEIN 5.9 g/dL (6.4-8.2)
[2018-03-11 04:06] LABS: BASOPHILS # (AUTO) 0.03 x10^3/uL (0-0.1); BASOPHILS % (AUTO) 0 % (0-1); EOSINOPHILS # (AUTO) 1.23 x10^3/uL (0-0.4); EOSINOPHILS % (AUTO) 15 % (1-7); LYMPHOCYTES # (AUTO) 1.52 x10^3/uL (1-3.4); LYMPHOCYTES % (AUTO) 18 % (22-44); MD NO; MEAN CORPUSCULAR HEMOGLOBIN 29.3 pg (27.5-34.5); MEAN CORPUSCULAR HGB CONC 33.5 g/dL (33.2-36.2); MEAN CORPUSCULAR VOLUME 87.3 fL (81-97); MEAN PLATELET VOLUME 7.6 fL (7.4-10.4); MONOCYTES # (AUTO) 0.41 x10^3/uL (0.2-0.8); MONOCYTES % (AUTO) 5 % (2-9); NEUTROPHILS # (AUTO) 5.17 x10^3/uL (1.8-6.8); NEUTROPHILS % (AUTO) 62 % (42-75); PLATELET COUNT 233 x10^3/uL (130-400); RED BLOOD COUNT 2.94 x10^6/uL (4.38-5.82); RED CELL DISTRIBUTION WIDTH 16.2 % (9.4-14.8)
[2018-03-11] MEDS: METOPROLOL TARTRATE 25 MG TABLET PO SCH ×2 (07:37→20:45)
[2018-03-11] MEDS: DOXYCYCLINE 100MG TABLET PO SCH ×2 (07:38→20:44)
[2018-03-11] MEDS: FUROSEMIDE 20 MG/2 ML IV SCH ×2 (07:38→17:00)
[2018-03-11] MEDS: FERROUS GLUCONATE 324 MG TABLET PO SCH ×2 (07:38→17:17)
[2018-03-11] MEDS: MAGNESIUM OXIDE 400 MG TABLET PO SCH (07:39)
[2018-03-11] MEDS: POTASSIUM CHLORIDE 20 MEQ TAB.ER.PRT PO SCH (07:39)
[2018-03-11] MEDS: ASPIRIN 81 MG TABLET EC PO SCH (07:39)
[2018-03-11] MEDS: CHOLECALCIFEROL 1,000 UNIT TABLET PO SCH (07:39)
[2018-03-11] MEDS: GUAIFENESIN ER 600 MG TABLET PO SCH ×2 (09:12→20:44)
[2018-03-11] MEDS ORDERED: methylPREDNISolone SOD SUCC 40 MG/ML IV SCH (09:30)
[2018-03-11] MEDS: methylPREDNISolone SOD SUCC 125 MG/2 ML IVPush SCH ×3 (10:53→23:24)
[2018-03-12] MEDS ORDERED: CATHFLO-ALTEPLASE 2 MG/2 ML CATHFLUSH ONE (00:30)
[2018-03-12] MEDS: CEFEPIME 2 GM in DEXTROSE 5% 100 ML IV SCH ×2 (03:20→16:05)
[2018-03-12] MEDS: methylPREDNISolone SOD SUCC 125 MG/2 ML IVPush SCH ×4 (04:44→22:13)
[2018-03-12] MEDS: ENOXAPARIN 30 MG/0.3 ML SQ SCH ×2 (04:45→16:06)
[2018-03-12 05:22] LABS: BASOPHILS # (AUTO) 0.01 x10^3/uL (0-0.1); BASOPHILS % (AUTO) 0 % (0-1); EOSINOPHILS % (AUTO) 0 % (1-7); LYMPHOCYTES # (AUTO) 0.82 x10^3/uL (1-3.4); LYMPHOCYTES % (AUTO) 14 % (22-44); MD NO; MEAN CORPUSCULAR HEMOGLOBIN 29.4 pg (27.5-34.5); MEAN CORPUSCULAR HGB CONC 33.8 g/dL (33.2-36.2); MEAN CORPUSCULAR VOLUME 86.9 fL (81-97); MEAN PLATELET VOLUME 7.7 fL (7.4-10.4); MONOCYTES # (AUTO) 0.05 x10^3/uL (0.2-0.8); MONOCYTES % (AUTO) 1 % (2-9); NEUTROPHILS # (AUTO) 4.89 x10^3/uL (1.8-6.8); NEUTROPHILS % (AUTO) 85 % (42-75); PLATELET COUNT 228 x10^3/uL (130-400); RED BLOOD COUNT 3.06 x10^6/uL (4.38-5.82); RED CELL DISTRIBUTION WIDTH 15.8 % (9.4-14.8)
[2018-03-12 05:29] LABS: ANION GAP 9 mmol/L (5-15); CALCIUM 8.8 mg/dL (8.5-10.1); CHLORIDE 105 mmol/L (98-107); CREATININE 1.03 mg/dL (0.7-1.3)
[2018-03-12] MEDS: FUROSEMIDE 20 MG/2 ML IV SCH ×2 (07:30→09:26)
[2018-03-12] MEDS: METOPROLOL TARTRATE 25 MG TABLET PO SCH ×2 (09:00→21:05)
[2018-03-12] MEDS: FERROUS GLUCONATE 324 MG TABLET PO SCH ×2 (09:25→16:07)
[2018-03-12] MEDS: MAGNESIUM OXIDE 400 MG TABLET PO SCH (09:25)
[2018-03-12] MEDS: POTASSIUM CHLORIDE 20 MEQ TAB.ER.PRT PO SCH (09:25)
[2018-03-12] MEDS: GUAIFENESIN ER 600 MG TABLET PO SCH ×2 (09:25→21:05)
[2018-03-12] MEDS: ASPIRIN 81 MG TABLET EC PO SCH (09:25)
[2018-03-12] MEDS: DOXYCYCLINE 100MG TABLET PO SCH ×2 (09:25→21:05)
[2018-03-12] MEDS: CHOLECALCIFEROL 1,000 UNIT TABLET PO SCH (09:25)
[2018-03-13] MEDS: CEFEPIME 2 GM in DEXTROSE 5% 100 ML IV SCH ×2 (03:14→14:30)
[2018-03-13] MEDS: ENOXAPARIN 30 MG/0.3 ML SQ SCH ×2 (04:55→14:30)
[2018-03-13] MEDS: methylPREDNISolone SOD SUCC 125 MG/2 ML IVPush SCH ×4 (04:55→21:17)
[2018-03-13 05:28] LABS: ALANINE AMINOTRANSFERASE 57 U/L (12-78); ALBUMIN 1.6 g/dL (3.4-5.0); ANION GAP 9 mmol/L (5-15); CALCIUM 8.9 mg/dL (8.5-10.1); CHLORIDE 107 mmol/L (98-107); CREATININE 0.96 mg/dL (0.7-1.3)
[2018-03-13 05:29] LABS: BASOPHILS # (AUTO) 0.01 x10^3/uL (0-0.1); BASOPHILS % (AUTO) 0 % (0-1); EOSINOPHILS % (AUTO) 0 % (1-7); LYMPHOCYTES # (AUTO) 0.66 x10^3/uL (1-3.4); LYMPHOCYTES % (AUTO) 7 % (22-44); MD NO; MEAN CORPUSCULAR HGB CONC 33.4 g/dL (33.2-36.2); MEAN CORPUSCULAR VOLUME 86.9 fL (81-97); MEAN PLATELET VOLUME 7.8 fL (7.4-10.4); MONOCYTES # (AUTO) 0.11 x10^3/uL (0.2-0.8); MONOCYTES % (AUTO) 1 % (2-9); NEUTROPHILS # (AUTO) 8.32 x10^3/uL (1.8-6.8); NEUTROPHILS % (AUTO) 91 % (42-75); PLATELET COUNT 235 x10^3/uL (130-400); RED BLOOD COUNT 2.99 x10^6/uL (4.38-5.82); RED CELL DISTRIBUTION WIDTH 16.3 % (9.4-14.8)
[2018-03-13 05:31] LABS: ALKALINE PHOSPHATASE 114 U/L (45-117); BILIRUBIN,TOTAL 0.4 mg/dL (0.2-1.0)
[2018-03-13] MEDS: POTASSIUM CHLORIDE 20 MEQ TAB.ER.PRT PO SCH (09:14)
[2018-03-13] MEDS: MAGNESIUM OXIDE 400 MG TABLET PO SCH (09:14)
[2018-03-13] MEDS: CHOLECALCIFEROL 1,000 UNIT TABLET PO SCH (09:14)
[2018-03-13] MEDS: GUAIFENESIN ER 600 MG TABLET PO SCH ×2 (09:14→21:17)
[2018-03-13] MEDS: DOXYCYCLINE 100MG TABLET PO SCH ×2 (09:14→21:17)
[2018-03-13] MEDS: ASPIRIN 81 MG TABLET EC PO SCH (09:14)
[2018-03-13] MEDS: FERROUS GLUCONATE 324 MG TABLET PO SCH ×2 (09:14→17:23)
[2018-03-13] MEDS: METOPROLOL TARTRATE 25 MG TABLET PO SCH ×3 (09:15→21:17)
[2018-03-13] MEDS: FUROSEMIDE 20 MG/2 ML IV SCH (09:15)
[2018-03-13] MEDS ORDERED: ALBUTEROL SULFATE 2.5 MG/3 ML NPPB PRN (15:30)
[2018-03-13 21:15] VITALS: BP 114/67
[2018-03-14 01:06] VITALS: BP 110/66
[2018-03-14] MEDS: CEFEPIME 2 GM in DEXTROSE 5% 100 ML IV SCH ×2 (03:15→15:22)
[2018-03-14] MEDS: ENOXAPARIN 30 MG/0.3 ML SQ SCH ×2 (03:15→15:22)
[2018-03-14] MEDS: methylPREDNISolone SOD SUCC 125 MG/2 ML IVPush SCH ×2 (03:52→08:39)
[2018-03-14 07:49] VITALS: BP 103/58
[2018-03-14 08:27] LABS: BASOPHILS # (AUTO) 0.06 x10^3/uL (0-0.1); BASOPHILS % (AUTO) 1 % (0-1); EOSINOPHILS # (AUTO) 0.11 x10^3/uL (0-0.4); EOSINOPHILS % (AUTO) 1 % (1-7); LYMPHOCYTES # (AUTO) 0.56 x10^3/uL (1-3.4); LYMPHOCYTES % (AUTO) 7 % (22-44); MD NO; MEAN CORPUSCULAR HEMOGLOBIN 29.2 pg (27.5-34.5); MEAN CORPUSCULAR VOLUME 85.8 fL (81-97); MEAN PLATELET VOLUME 7.7 fL (7.4-10.4); MONOCYTES # (AUTO) 0.21 x10^3/uL (0.2-0.8); MONOCYTES % (AUTO) 3 % (2-9); NEUTROPHILS # (AUTO) 7.21 x10^3/uL (1.8-6.8); NEUTROPHILS % (AUTO) 89 % (42-75); PLATELET COUNT 228 x10^3/uL (130-400); RED BLOOD COUNT 3.19 x10^6/uL (4.38-5.82); RED CELL DISTRIBUTION WIDTH 16.1 % (9.4-14.8)
[2018-03-14] MEDS: MAGNESIUM OXIDE 400 MG TABLET PO SCH (08:36)
[2018-03-14] MEDS: CHOLECALCIFEROL 1,000 UNIT TABLET PO SCH (08:36)
[2018-03-14] MEDS: GUAIFENESIN ER 600 MG TABLET PO SCH ×2 (08:36→20:20)
[2018-03-14] MEDS: POTASSIUM CHLORIDE 20 MEQ TAB.ER.PRT PO SCH (08:36)
[2018-03-14] MEDS: FERROUS GLUCONATE 324 MG TABLET PO SCH ×2 (08:36→17:25)
[2018-03-14] MEDS: ASPIRIN 81 MG TABLET EC PO SCH (08:36)
[2018-03-14 08:39] LABS: ANION GAP 10 mmol/L (5-15); CALCIUM 8.3 mg/dL (8.5-10.1); CHLORIDE 108 mmol/L (98-107); CREATININE 0.97 mg/dL (0.7-1.3)
[2018-03-14] MEDS: DOXYCYCLINE 100MG TABLET PO SCH ×2 (08:39→20:20)
[2018-03-14] MEDS: FUROSEMIDE 20 MG/2 ML IV SCH (08:39)
[2018-03-14] MEDS: METOPROLOL TARTRATE 25 MG TABLET PO SCH ×2 (08:43→20:20)
[2018-03-14 14:50] VITALS: BP 119/69
[2018-03-14 20:17] VITALS: BP 134/77
[2018-03-15 02:16] VITALS: BP 142/74
[2018-03-15] MEDS: CEFEPIME 2 GM in DEXTROSE 5% 100 ML IV SCH (02:25)
[2018-03-15] MEDS: ENOXAPARIN 30 MG/0.3 ML SQ SCH ×2 (02:25→15:22)
[2018-03-15 04:24] LABS: BASOPHILS # (AUTO) 0.04 x10^3/uL (0-0.1); BASOPHILS % (AUTO) 1 % (0-1); EOSINOPHILS # (AUTO) 0.08 x10^3/uL (0-0.4); EOSINOPHILS % (AUTO) 1 % (1-7); LYMPHOCYTES # (AUTO) 1.43 x10^3/uL (1-3.4); LYMPHOCYTES % (AUTO) 17 % (22-44); MD NO; MEAN CORPUSCULAR HEMOGLOBIN 28.9 pg (27.5-34.5); MEAN CORPUSCULAR HGB CONC 33.2 g/dL (33.2-36.2); MEAN CORPUSCULAR VOLUME 87.1 fL (81-97); MONOCYTES # (AUTO) 0.63 x10^3/uL (0.2-0.8); MONOCYTES % (AUTO) 7 % (2-9); NEUTROPHILS # (AUTO) 6.38 x10^3/uL (1.8-6.8); NEUTROPHILS % (AUTO) 75 % (42-75); PLATELET COUNT 240 x10^3/uL (130-400); RED BLOOD COUNT 3.09 x10^6/uL (4.38-5.82); RED CELL DISTRIBUTION WIDTH 16.1 % (9.4-14.8)
[2018-03-15 04:28] LABS: ALANINE AMINOTRANSFERASE 50 U/L (12-78); ALBUMIN 1.7 g/dL (3.4-5.0); ANION GAP 9 mmol/L (5-15); CALCIUM 8.1 mg/dL (8.5-10.1); CHLORIDE 110 mmol/L (98-107); CREATININE 0.85 mg/dL (0.7-1.3)
[2018-03-15 04:35] LABS: ALKALINE PHOSPHATASE 97 U/L (45-117); BILIRUBIN,TOTAL 0.4 mg/dL (0.2-1.0); TOTAL PROTEIN 5.5 g/dL (6.4-8.2)
[2018-03-15 04:50] LABS: HCT (SEDRATE) 26.9 % (39.2-51.8)
[2018-03-15 08:00] VITALS: BP 117/65
[2018-03-15] MEDS: METOPROLOL TARTRATE 25 MG TABLET PO SCH (09:00)
[2018-03-15] MEDS ORDERED: FUROSEMIDE 20 MG TABLET PO SCH (09:00)
[2018-03-15] MEDS: GUAIFENESIN ER 600 MG TABLET PO SCH (09:06)
[2018-03-15] MEDS: MAGNESIUM OXIDE 400 MG TABLET PO SCH (09:06)
[2018-03-15] MEDS: FERROUS GLUCONATE 324 MG TABLET PO SCH ×2 (09:06→17:03)
[2018-03-15] MEDS: CHOLECALCIFEROL 1,000 UNIT TABLET PO SCH (09:06)
[2018-03-15] MEDS: DOXYCYCLINE 100MG TABLET PO SCH (09:08)
[2018-03-15] MEDS: POTASSIUM CHLORIDE 20 MEQ TAB.ER.PRT PO SCH (09:08)
[2018-03-15] MEDS: ASPIRIN 81 MG TABLET EC PO SCH (09:08)
[2018-03-15] MEDS ORDERED: PRED20TA PO (12:35)
[2018-03-15] MEDS ORDERED: DOXY100T PO (12:35)
[2018-03-15 13:27] VITALS: BP 127/70
== END 2018-03-15 18:40 | disposition home or self-care (01) | DRG 291 ==
LOC: ED 10:43 → EDIP 11:58 → 4WST 13:29 → CCU 03-09 19:47 → 5SO 03-13 16:03
PROVIDERS: ADMIT Family Medicine; ATTEND Family Medicine
DX: I11.0 Hypertensive heart disease with heart failure (principal); J96.01 Acute respiratory failure with hypoxia; E46 Unspecified protein-calorie malnutrition; J44.0 Chronic obstructive pulmonary disease with (acute) lower respiratory infection; J98.11 Atelectasis; J84.116 Cryptogenic organizing pneumonia; I50.43 Acute on chronic combined systolic (congestive) and diastolic (congestive) heart failure; E78.5 Hyperlipidemia, unspecified; I25.10 Atherosclerotic heart disease of native coronary artery without angina pectoris; D63.8 Anemia in other chronic diseases classified elsewhere; Z82.49 Family history of ischemic heart disease and other diseases of the circulatory system; Z80.1 Family history of malignant neoplasm of trachea, bronchus and lung; Z80.2 Family history of malignant neoplasm of other respiratory and intrathoracic organs; Z86.14 Personal history of Methicillin resistant Staphylococcus aureus infection; Z90.49 Acquired absence of other specified parts of digestive tract; Z95.5 Presence of coronary angioplasty implant and graft; I25.2 Old myocardial infarction; Z68.23 Body mass index [BMI] 23.0-23.9, adult; Z85.828 Personal history of other malignant neoplasm of skin; Z79.82 Long term (current) use of aspirin; Z79.899 Other long term (current) drug therapy
CPT/HCPCS: 36415; 36600; 71045; 71046; 71275; 80048; 80053; 82803; 83605; 83735; 83880; 84100; 84145; 84484; 85025; 85379; 85610; 85651; 85730; 86140; 86631; 86632; 86635; 86738; 87040; 87081; 87205; 87400; 87633; 88104; 93005; 93880; 94640; 99285; G0378; J1650; J1940; J2997; Q0162; Q9967; J2930; J7512

== ENCOUNTER → 2018-03-22 | Outpatient (CLI) | payer MEDICARE, OTHER ==
[~2018-03-22] MED LIST changes: +DOXY100T PO; +PRED20TA PO
[2018-03-22 12:33] LABS: HCT (SEDRATE) 30.6 % (39.2-51.8)
[2018-03-22 12:34] LABS: BASOPHILS # (AUTO) 0.03 x10^3/uL (0-0.1); BASOPHILS % (AUTO) 0 % (0-1); EOSINOPHILS # (AUTO) 0.03 x10^3/uL (0-0.4); EOSINOPHILS % (AUTO) 0 % (1-7); LYMPHOCYTES # (AUTO) 2.02 x10^3/uL (1-3.4); LYMPHOCYTES % (AUTO) 22 % (22-44); MD NO; MEAN CORPUSCULAR HEMOGLOBIN 28.9 pg (27.5-34.5); MEAN CORPUSCULAR HGB CONC 32.9 g/dL (33.2-36.2); MEAN CORPUSCULAR VOLUME 87.9 fL (81-97); MEAN PLATELET VOLUME 8.7 fL (7.4-10.4); MONOCYTES # (AUTO) 0.65 x10^3/uL (0.2-0.8); MONOCYTES % (AUTO) 7 % (2-9); NEUTROPHILS # (AUTO) 6.56 x10^3/uL (1.8-6.8); NEUTROPHILS % (AUTO) 71 % (42-75); PLATELET COUNT 271 x10^3/uL (130-400); RED BLOOD COUNT 3.49 x10^6/uL (4.38-5.82); RED CELL DISTRIBUTION WIDTH 18.6 % (9.4-14.8)
[2018-03-22 12:44] LABS: ALANINE AMINOTRANSFERASE 36 U/L (12-78); ALBUMIN 2.6 g/dL (3.4-5.0); ANION GAP 7 mmol/L (5-15); C-REACTIVE PROTEIN, QUANT 0.35 mg/dL (0.02-0.49); CALCIUM 8.5 mg/dL (8.5-10.1); CHLORIDE 106 mmol/L (98-107)
[2018-03-22 12:47] LABS: ALKALINE PHOSPHATASE 107 U/L (45-117); BILIRUBIN,TOTAL 0.4 mg/dL (0.2-1.0); CREATINE KINASE, TOTAL 24 U/L (39-308); TOTAL PROTEIN 6.1 g/dL (6.4-8.2)
== END | disposition home or self-care (01) ==
LOC: CFH 08:32
PROVIDERS: ATTEND Internal Medicine Infectious Disease
DX: K81.0 Acute cholecystitis (principal); D64.9 Anemia, unspecified; R70.0 Elevated erythrocyte sedimentation rate
CPT/HCPCS: 36415; 80053; 82550; 85025; 85651; 86140

== ENCOUNTER → 2018-04-12 | Outpatient (CLI) | payer MEDICARE, OTHER ==
[2018-04-12 12:44] LABS: HCT (SEDRATE) 32.8 % (39.2-51.8)
[2018-04-12 12:45] LABS: BASOPHILS # (AUTO) 0.03 x10^3/uL (0-0.1); BASOPHILS % (AUTO) 0 % (0-1); EOSINOPHILS # (AUTO) 0.11 x10^3/uL (0-0.4); EOSINOPHILS % (AUTO) 1 % (1-7); LYMPHOCYTES # (AUTO) 2.51 x10^3/uL (1-3.4); LYMPHOCYTES % (AUTO) 34 % (22-44); MD NO; MEAN CORPUSCULAR HEMOGLOBIN 30.5 pg (27.5-34.5); MEAN CORPUSCULAR HGB CONC 33.9 g/dL (33.2-36.2); MEAN CORPUSCULAR VOLUME 89.9 fL (81-97); MEAN PLATELET VOLUME 8.1 fL (7.4-10.4); MONOCYTES # (AUTO) 0.69 x10^3/uL (0.2-0.8); MONOCYTES % (AUTO) 9 % (2-9); NEUTROPHILS # (AUTO) 4.08 x10^3/uL (1.8-6.8); NEUTROPHILS % (AUTO) 55 % (42-75); PLATELET COUNT 179 x10^3/uL (130-400); RED BLOOD COUNT 3.69 x10^6/uL (4.38-5.82)
[2018-04-12 12:57] LABS: ALBUMIN 3.1 g/dL (3.4-5.0); CHLORIDE 109 mmol/L (98-107)
[2018-04-12 13:09] LABS: ALANINE AMINOTRANSFERASE 38 U/L (12-78); ALKALINE PHOSPHATASE 94 U/L (45-117); ANION GAP 7 mmol/L (5-15); BILIRUBIN,TOTAL 0.8 mg/dL (0.2-1.0); CALCIUM 8.5 mg/dL (8.5-10.1); CREATININE 1.01 mg/dL (0.7-1.3); TOTAL PROTEIN 6.3 g/dL (6.4-8.2)
== END | disposition home or self-care (01) ==
LOC: CFH 10:56
PROVIDERS: ATTEND Internal Medicine Infectious Disease
DX: J18.9 Pneumonia, unspecified organism (principal); D64.9 Anemia, unspecified; R70.0 Elevated erythrocyte sedimentation rate; R79.82 Elevated C-reactive protein (CRP)
CPT/HCPCS: 36415; 80053; 85025; 85651; 86140; 86738

== ENCOUNTER → 2018-04-28 | Outpatient (CLI) | payer MEDICARE, OTHER | END | disposition home or self-care (01) | LOC: CFH 08:35 | PROVIDERS: ATTEND Internal Medicine Critical Care Medicine | DX: R91.8 Other nonspecific abnormal finding of lung field (principal) | CPT/HCPCS: 71250 ==

== ENCOUNTER 2019-01-06 07:09 | Outpatient (CLI) | payer MEDICARE, OTHER | END 2019-01-06 23:59 | disposition home or self-care (01) | LOC: CFH 07:09 | PROVIDERS: ATTEND Internal Medicine Cardiovascular Disease | DX: E78.2 Mixed hyperlipidemia (principal); A49.02 Methicillin resistant Staphylococcus aureus infection, unspecified site; I11.0 Hypertensive heart disease with heart failure; I50.9 Heart failure, unspecified; I25.10 Atherosclerotic heart disease of native coronary artery without angina pectoris; J96.90 Respiratory failure, unspecified, unspecified whether with hypoxia or hypercapnia | CPT/HCPCS: 36415; 80053; 80061 ==

== ENCOUNTER → 2020-01-19 | Outpatient (CLI) | payer MEDICARE, OTHER ==
[~2020-01-19] MED LIST changes: -ASPI-621 PO; +ASPI81TA45 PO; -KRIL1CAP PO; +KRIL1CAP7 PO; +LOSA50TA14 PO; -LOSA50TA7 PO; -MAGN400T7 PO; +MAGN400T9 PO; -NITR0.4T SL; +NITR0.4T41 SL
[2020-01-19 13:21] LABS: BASOPHILS # (AUTO) 0.03 x10^3/uL (0-0.1); BASOPHILS % (AUTO) 1 % (0-1); EOSINOPHILS % (AUTO) 2 % (1-7); LYMPHOCYTES # (AUTO) 1.31 x10^3/uL (1-3.4); LYMPHOCYTES % (AUTO) 30 % (22-44); MD NO; MEAN CORPUSCULAR HGB CONC 33.8 g/dL (33.2-36.2); MEAN CORPUSCULAR VOLUME 94.6 fL (81-97); MEAN PLATELET VOLUME 8.8 fL (7.4-10.4); MONOCYTES # (AUTO) 0.45 x10^3/uL (0.2-0.8); MONOCYTES % (AUTO) 10 % (2-9); NEUTROPHILS % (AUTO) 57 % (42-75); PLATELET COUNT 155 x10^3/uL (130-400); RED CELL DISTRIBUTION WIDTH 13.6 % (9.4-14.8)
[2020-01-19 13:37] LABS: CHLORIDE 109 mmol/L (98-107)
[2020-01-19 13:47] LABS: ALANINE AMINOTRANSFERASE 25 U/L (12-78); ALBUMIN 3.9 g/dL (3.4-5.0); ALKALINE PHOSPHATASE 110 U/L (45-117); ANION GAP 3 mmol/L (5-15); BILIRUBIN,TOTAL 0.9 mg/dL (0.2-1.0); CALCIUM 8.8 mg/dL (8.5-10.1); CHOL/HDL RATIO 2.9; CHOLESTEROL, TOTAL 164 mg/dL (140-239); CREATININE 0.97 mg/dL (0.7-1.3); HDL CHOL % 34 % (26-37); HDL CHOLESTEROL (DIRECT) 56 mg/dL (40-60); LDL CHOLESTEROL,CALCULATED 96 mg/dL (54-169); LDL/HDL RATIO 1.7 (0.5-3.0); TOTAL PROTEIN 7.4 g/dL (6.4-8.2); TRIGLYCERIDES 60 mg/dL (50-200); VLDL CHOLESTEROL 12 mg/dL (0-25)
== END | disposition home or self-care (01) ==
LOC: CFH 07:15
PROVIDERS: ATTEND Internal Medicine Cardiovascular Disease
DX: E78.2 Mixed hyperlipidemia (principal)
CPT/HCPCS: 36415; 80053; 80061; 85025

== ENCOUNTER → 2020-07-19 | Outpatient (CLI) | payer MEDICARE, OTHER ==
[~2020-07-19] MED LIST changes: +HYDR-1067 PO; -HYDR-3240 PO; +METH-640 PO; -METH750T2 PO
== END | disposition home or self-care (01) ==
LOC: CVU 08:22
PROVIDERS: ATTEND Internal Medicine Cardiovascular Disease
DX: I65.23 Occlusion and stenosis of bilateral carotid arteries (principal); I25.2 Old myocardial infarction; I10 Essential (primary) hypertension; E78.2 Mixed hyperlipidemia
CPT/HCPCS: 93880